=== PATIENT | female | born 1945 | race Caucasian/White ===

== ENCOUNTER 2017-06-14 01:46 | Observation (INO) | payer MEDICARE ==
[~2017-06-14] VITALS: Ht 152.4 cm; Wt 63.2 kg
[2017-06-14] VITALS (14 sets, daily range): BP systolic 119–183; BP diastolic 56–103; PULSE 53–113; RESP 16–22; TEMP 98.1–99.5; O2SAT 90–100
[~2017-06-14 01:46] MED LIST: DICL1GEL TD; PRED20 PO; SYNT112T PO; TRAM50 PO
[2017-06-14] MEDS ORDERED: ONDANSETRON HCL 4 MG/2 ML VIAL IVP ONE (02:00)
[2017-06-14] MEDS ORDERED: SODIUM CHLOR 0.9% 1000 ML INJ 1,000 ML IV SCH (02:00)
[2017-06-14] MEDS ORDERED: SODIUM CHLORIDE 0.9% FLUSH 10 ML FLUSH IV FLUSH PRN (02:00)
[2017-06-14] MEDS ORDERED: MORPHINE SULFATE 4 MG/ML INJ IV PUSH ONE ×2 (02:00→02:30)
--- NOTE | 2017-06-14 02:27 | RADRPT ---
EXAM DATE/TIME: 06/14/2017 02:01 [facility] COMPARISON: No previous studies available for comparison. INDICATIONS : Short of breath. MEDICAL HISTORY : None. SURGICAL HISTORY : None. ENCOUNTER: Initial ACUITY: 1 day PAIN SCORE: 5/10 LOCATION: Bilateral chest FINDINGS: The cardiac silhouette is enlarged in transverse diameter. The lungs are free of acute parenchymal op acity. No effusions are identified. A moderate size hiatal hernia is present. CONCLUSION: 1. Cardiomegaly. No acute pulmonary disease. 2. Hiatal hernia Kristopher Lovell MD on June 14, 2017 at 2:25 Board Certified Radiologist. This report was verified electronically.
[2017-06-14] MEDS ORDERED: PROMETHAZINE INJ 25 MG/ML VIAL IM ONE (02:30)
[2017-06-14 02:31] LABS: AUTOMATED NEUTROPHIL # 17.1 TH/MM3 (1.8-7.7); BASOPHIL # 0.3 TH/MM3 (0-0.2); BASOPHIL % 1.4 % (0.0-2.0); EOSINOPHIL % 0.1 % (0.0-4.0); LYMPH % 3.9 % (9.0-44.0); LYMPHOCYTE # 0.7 TH/MM3 (1.0-4.8); MEAN CELL VOLUME 73.9 FL (80.0-100.0); MEAN CORPUSCULAR HEMOGLOBIN 23.2 PG (27.0-34.0); MEAN CORPUSCULAR HGB CONC 31.4 % (32.0-36.0); MONO % 0.4 % (0.0-8.0); NEUT % 94.2 % (16.0-70.0); PLATELET COUNT 494 TH/MM3 (150-450); RED CELL DISTRIBUTION WIDTH 16.9 % (11.6-17.2); WHITE BLOOD COUNT 18.2 TH/MM3 (4.0-11.0)
[2017-06-14 02:32] LABS: HEMO FLAGS AUTO DIFF
[2017-06-14 02:39] LABS: CHLORIDE 104 MEQ/L (98-107); POTASSIUM 3.6 MEQ/L (3.5-5.1); SODIUM (NA) 138 MEQ/L (136-145)
[2017-06-14 02:43] LABS: ANION GAP 10 MEQ/L (5-15); BICARBONATE 23.7 MEQ/L (21.0-32.0)
[2017-06-14 02:44] LABS: BLOOD UREA NITROGEN 12 MG/DL (7-18)
[2017-06-14 02:46] LABS: ALT (GPT) 17 U/L (10-53); AST (GOT) 10 U/L (15-37); GLOMERULAR FILTRATION RATE 69 ML/MIN (>89)
[2017-06-14 02:48] LABS: TOTAL BILIRUBIN ADULT 0.3 MG/DL (0.2-1.0)
[2017-06-14 02:49] LABS: ALKALINE PHOSPHATASE 134 U/L (45-117)
[2017-06-14 02:54] LABS: BANDS 2 % (0-6); NEUTROPHIL # MANUAL DIFF 16.7 TH/MM3 (1.8-7.7); OVALOCYTES 1+ (NORMAL); PLATELET ESTIMATE SMEAR HIGH (NORMAL); PLATELET MORPHOLOGY CLUMPED (NORMAL); POLYS (SEG NEUTROPHILS) 90 % (16-70); SCAN/DIFF FINAL DIFF MANUAL; WBC DIFF SAMPLE 100
[2017-06-14] MEDS ORDERED: PIPERACIL-TAZO 4.5 GM PREMIX 100 ML IV ONE (03:30)
--- NOTE | 2017-06-14 03:33 | RADRPT ---
EXAM DATE/TIME: 06/14/2017 02:59 [facility] COMPARISON: No previous studies available for comparison. INDICATIONS : Right flank pain. ORAL CONTRAST: No oral contrast ingested. RADIATION DOSE: 11.63 CTDIvol (mGy) MEDICAL HISTORY : Hernia, hiatal. Diverticulitis. Gastroesophageal reflux disease. SURGICAL HISTORY : Hysterectomy. ENCOUNTER: Initial ACUITY: 1 day PAIN SCALE: 10/10 LOCATION: Right flank TECHNIQUE: Volumetric scanning of the abdomen and pelvis was performed. Using automated exposure control and ad justment of the mA and/or kV according to patient size, radiation dose was kept as low as reasonably achievable to obtain optimal diagnostic quality images. DICOM format image data is available electro nically for review and comparison. FINDINGS: Examination of the lung bases demonstrates no abnormality. No pleural fluid is identified. No pulmona ry nodules are present. A large hiatal hernia is present. There are multiple hypodensities within the liver compatible with hepatic cysts the largest measuring 15 mm in segment 5. The spleen is normal i n size and free of focal defects. The adrenal glands are unremarkable. There are multiple left renal stones without obstruction. On the right side there is hydronephrosis and hydroureter with 11 mm ston e in the distal right ureter. Examination of the pelvis demonstrates no evidence of free fluid or pelvic mass. No abnormally enlarg ed inguinal or retroperitoneal lymph nodes are present. The bladder is unremarkable. There is diverti culosis without evidence of diverticulitis. CONCLUSION: 1. Right hydronephrosis and hydroureter with an 11 mm distal right ureteral stone 2. Hiatal hernia Kristopher Lovell MD on June 14, 2017 at 3:27 Board Certified Radiologist. This report was verified electronically.
[2017-06-14] MEDS ORDERED: VOLT1GEL4 TD (03:48)
[2017-06-14] MEDS ORDERED: SYNT112T PO (03:48)
--- NOTE | 2017-06-14 04:18 | PD ---
HPI Chief Complaint: Flank/Kidney Pain Time Seen by Provider: 01:49 Travel History International Travel<30 days: No Contact w/Intl Traveler<30days: No Traveled to known affect area: No History of Present Illness HPI 72-year-old female presents to the emergency department by EMS transport from home for complaint of severe abdominal pain since 9 PM. Patient did receive Zofran en route to the hospital per EMS but they were reportedly unable to obtain a blood pressure due to patient inability to sit still long enough for blood pressure to be obtained. No tachycardia and no tachypnea. Blood sugar was reportedly within normal range. PFSH Past Medical History Narrative Medical Arthritis diverticulitis recurrent UTIs hiatal hernia hysterectomy right eye enucleation lumbar disc disease hypothyroidism tonsillectomy alcohol use tobacco use; nursing notes reviewed Arthritis: Yes (OSTEO) Cancer: No Cardiovascular Problems: No Diabetes: No Diminished Hearing: No Diverticulitis: Yes Endocrine: Yes Gastrointestinal Disorders: Yes (ACID REFLUX, HX OF DIVERTICULITIS/ DIVERTICULOSIS, HIATAL HERNIA) GERD: Yes Genitourinary: Yes (HX OF MULTIPLE UTI'S) Hepatitis: No Hiatal Hernia: Yes Herniated Disk: Yes ("BULGING") Immune Disorder: No Kidney Stones: Yes Musculoskeletal: Yes (HERNIATED DISC LOWER LUMBAR) Neurologic: No Psychiatric: No Reproductive: No Respiratory: Yes (SMOKE 1/2 PPD) Pneumonia: Yes (?) Thyroid Disease: Yes (HX OF HYPERTHYROID, HX OF THYROID REMOVAL/ABLATION) Tetanus Vaccination: < 5 Years Influenza Vaccination: No ?: Not Menopausal: Yes : 3 Para: 3 Past Surgical History AICD: No Body Medical Devices: R EYE PROSTHESIS Eye Surgery: Yes (RIGHT EYE ENUCLEATION--R EYE REMOVED 1950) Gynecologic Surgery: Yes (HYSTERECTOMY 1980) Hysterectomy: Yes Joint Replacement: No Oral Surgery: Yes (NASAL FX REPAIR) Pacemaker: No Tonsillectomy: Yes Other Surgery: Yes Social History Alcohol Use: Yes (OCC.) Tobacco Use: Yes (1/2 PPD) Substance Use: No Allergies-Medications (Allergen,Severity, Reaction): Coded Allergies: aspirin (Unverified Allergy, Mild, 06/14/17) PATIENT HAS STOMACH PROBLEMS WITH ASPIRIN Reported Meds & Prescriptions Reported Meds & Active Scripts Active Reported Voltaren (Diclofenac Sodium) 1 % Gel..gram. 1 Applic TD TID PRN Synthroid (Levothyroxine Sodium) 112 Mcg Tab 112 Mcg PO DAILY Review of Systems Except as stated in HPI: all other systems reviewed are Neg General / Constitutional: No: Fever, Chills HENT: No: Headaches Cardiovascular: No: Chest Pain or Discomfort Respiratory: No: Shortness of Breath Gastrointestinal: Positive: Nausea, Vomiting, Abdominal Pain Genitourinary: Positive: Flank Pain Musculoskeletal: No: Myalgias, Arthralgias Skin: No Rash Neurologic: Positive: Weakness Psychiatric: Positive: Anxiety Hematologic/Lymphatic: No: Lymph Node Enlargement Physical Exam Narrative GENERAL: Well-developed well-nourished female in obvious marked distress no respiratory distress GCS 15 SKIN: Warm and dry. HEAD: Normocephalic. EYES: No scleral icterus. No injection or drainage. NECK: Supple, trachea midline. No JVD or lymphadenopathy. CARDIOVASCULAR: Regular rate and rhythm without murmurs, gallops, or rubs. RESPIRATORY: Breath sounds equal bilaterally. No accessory muscle use. GASTROINTESTINAL: Abdomen soft, right-sided tenderness without guarding or rebound, nondistended. MUSCULOSKELETAL: No cyanosis, or edema. BACK: Nontender without obvious deformity. Right flank/CVA tenderness. Data Data Last Documented VS Vital Signs Date Time Temp Pulse Resp B/P (MAP) Pulse Ox O2 Delivery O2 Flow Rate FiO2 06/14/17 03:51 53 16 158/64 (95) 96 Nasal Cannula 2.00 Orders Orders Complete Blood Count With Diff (06/14/17 01:49) Comprehensive Metabolic Panel (06/14/17 01:49) Lipase (06/14/17 01:49) Lactic Acid (06/14/17 01:49) Urinalysis - C+S If Indicated (06/14/17 01:49) Ct Abd/Pel W/O Iv Contrast (06/14/17 01:49) Iv Access Insert/Monitor (06/14/17 01:49) Ecg Monitoring (06/14/17 01:49) Oximetry (06/14/17 01:49) Morphine Inj (Morphine Inj) (06/14/17 02:00) Ondansetron Inj (Zofran Inj) (06/14/17 02:00) Sodium Chloride 0.9% Flush (Ns Flush) (06/14/17 02:00) Electrocardiogram (06/14/17 01:49) Chest, Single Ap (06/14/17 01:49) Sodium Chlor 0.9% 1000 Ml Inj (Ns 1000 M (06/14/17 02:00) Type And Screen (06/14/17 01:49) Morphine Inj (Morphine Inj) (06/14/17 02:30) Promethazine Inj (Phenergan Inj) (06/14/17 02:30) Piperacil-Tazo 4.5 Gm Premix (Zosyn 4.5 (06/14/17 03:30) Blood Culture (06/14/17 04:07) Labs Laboratory Tests Test 06/14/17 02:25 White Blood Count 18.2 TH/MM3 Red Blood Count 4.60 MIL/MM3 Hemoglobin 10.7 GM/DL Hematocrit 34.0 % Mean Corpuscular Volume 73.9 FL Mean Corpuscular Hemoglobin 23.2 PG Mean Corpuscular Hemoglobin Concent 31.4 % Red Cell Distribution Width 16.9 % Platelet Count 494 TH/MM3 Mean Platelet Volume 7.7 FL Neutrophils (%) (Auto) 94.2 % Lymphocytes (%) (Auto) 3.9 % Monocytes (%) (Auto) 0.4 % Eosinophils (%) (Auto) 0.1 % Basophils (%) (Auto) 1.4 % Neutrophils # (Auto) 17.1 TH/MM3 Lymphocytes # (Auto) 0.7 TH/MM3 Monocytes # (Auto) 0.1 TH/MM3 Eosinophils # (Auto) 0.0 TH/MM3 Basophils # (Auto) 0.3 TH/MM3 CBC Comment AUTO DIFF Differential Total Cells Counted 100 Neutrophils % (Manual) 90 % Band Neutrophils % 2 % Lymphocytes % 7 % Monocytes % 1 % Neutrophils # (Manual) 16.7 TH/MM3 Differential Comment FINAL DIFF MANUAL Platelet Estimate HIGH Platelet Morphology Comment CLUMPED Ovalocytes 1+ Blood Urea Nitrogen 12 MG/DL Creatinine 0.81 MG/DL Random Glucose 173 MG/DL Total Protein 7.4 GM/DL Albumin 3.8 GM/DL Calcium Level 9.9 MG/DL Alkaline Phosphatase 134 U/L Aspartate Amino Transf (AST/SGOT) 10 U/L Alanine Aminotransferase (ALT/SGPT) 17 U/L Total Bilirubin 0.3 MG/DL Sodium Level 138 MEQ/L Potassium Level 3.6 MEQ/L Chloride Level 104 MEQ/L Carbon Dioxide Level 23.7 MEQ/L Anion Gap 10 MEQ/L Estimat Glomerular Filtration Rate 69 ML/MIN Lactic Acid Level 2.0 mmol/L Lipase 114 U/L [facility] Medical Decision Making Medical Screen Exam Complete: Yes Emergency Medical Condition: Yes Medical Record Reviewed: Yes Interpretation(s) CT abd/pel: CONCLUSION: 1. Right hydronephrosis and hydroureter with an 11 mm distal right ureteral stone 2. Hiatal hernia Kristopher Lovell MD on June 14, 2017 at 3:27 Board Certified Radiologist. This report was verified electronically. CBC & BMP Diagram 06/14/17 02:25 Total Protein 7.4, Albumin 3.8, Calcium Level 9.9, Alkaline Phosphatase 134 H, Aspartate Amino Transf (AST/SGOT) 10 L, Alanine Aminotransferase (ALT/SGPT) 17, Total Bilirubin 0.3 Vital Signs Date Time Temp Pulse Resp B/P (MAP) Pulse Ox O2 Delivery O2 Flow Rate FiO2 06/14/17 03:51 53 16 158/64 (95) 96 Nasal Cannula 2.00 06/14/17 03:10 58 18 159/61 (93) 97 Nasal Cannula 2.00 06/14/17 02:56 61 20 168/86 (113) 96 Nasal Cannula 2.00 06/14/17 02:43 55 18 168/86 (113) 96 Room Air Differential Diagnosis Obstructive uropathy/nephrolithiasis ureterolithiasis, pyelonephritis, abdominal aortic aneurysm, aortic dissection, biliary colic, pancreatitis, atypical appendicitis, Narrative Course Patient placed on cardiac exercise physiologist IV access obtained specimens collected and sent for resulting patient administered Zofran 4 mg IV morphine sulfate 3 mg IV Patient continues to rise back and forth in severe pain on the exam stretcher receiving maintenance IV fluids 100 cc per hour reports pain is intolerable additional morphine sulfate 2 mg IV administered Patient relief after additional dose of morphine sulfate Patient with ongoing nausea and vomiting has received 8 mg of Zofran therefore Phenergan 25 mg IM administered IV fluids infusing CBC is automated differential marked leukocytosis with left shift with history of recurrent UTI and diverticulitis with abdominal pain well administer Zofran 4.5 gm IV lactic acid is 2.0, not elevated Metabolic panel values grossly within normal range Patient sent for CT abdomen and pelvis kidney stone protocol; consistent with obstructive uropathy with hydronephrosis and hydroureter with distal 11 mm ureteral stone Patient return from CT reports feels some improved urine specimen collected At 4:15 AM patient again vomiting; patient be admitted for intractable pain and vomiting with obstructive uropathy will require urology consult and probable stenting Sepsis Criteria SIRS Criteria (2 or more): WBC > 83392, < 4000 or > 10% bands Sepsis Criteria (SIRS+source): Infect source susp/known (urine) Physician Communication Physician Communication call placed to Dr Bueno for admission Diagnosis Primary Impression: Hydronephrosis Qualified Codes: N13.2 - Hydronephrosis with renal and ureteral calculous obstruction Additional Impression: Renal colic on right side Admitting Information Admitting Physician Requests: Admit Mariangel Lujan MD Jun 14, 2017 04:18
[2017-06-14 04:21] LABS: BLOOD, URINE SMALL (NEG); GLUCOSE,URINE NEG (NEG); KETONE, URINE NEG (NEG); NITRITE,URINE NEG (NEG)
[2017-06-14 04:35] LABS: URINE COLOR YELLOW (YELLW/STRAW)
[2017-06-14 04:37] LABS: MUCUS URINE OCC /lpf (OCC); SQUAMOUS EPITHELIAL CELL URINE 0-5 /hpf (0-5)
[2017-06-14 04:38] LABS: BACTERIA, URINE OCC /hpf; COMMENT (UR) CULT NOT INDICATED; CULTURE IF INDICATED CULT NOT INDICATED
--- NOTE | 2017-06-14 05:44 | HHI.HP ---
HPI [facility] Primary Care Physician Denise Zavala MD Admission Diagnosis (R) 11 mm hydronephrosis/ureter; leukocytosis Chief Complaint: Right flank and right lower abdomen pain, nausea vomiting Travel History International Travel<30 Days: No Contact w/Intl Traveler <30 Da: No Traveled to Known Affected Are: No History of Present Illness 72-year-old female known to me from prior outpatient care presents to the emergency department by EMS transport from home for complaint of severe abdominal pain since 9 PM last night. Patient did receive Zofran en route to the hospital per EMS but they were reportedly unable to obtain a blood pressure due to patient inability to sit still long enough for blood pressure to be obtained. Patient was found to have a white count of 18 and an 11 mm kidney stone in the right ureter with associated hydronephrosis and hydroureter on that side. She has been given morphine as well as Phenergan in the noted ondansetron as above. Phenergan seemed to work better for controlling her nausea vomiting. Urology is requesting that the adult medicine service admit the patient and transfer her to the main campus for further evaluation and treatment. Review of Systems Constitutional: COMPLAINS OF: Diaphoretic episodes Eyes: DENIES: Blurred vision, Diplopia, Eye inflammation, Eye pain, Vision loss , Photosensitivity, Double Vision Ears, nose, mouth, throat: DENIES: Tinnitus, Hearing loss, Vertigo, Nasal discharge, Oral lesions, Throat pain, Hoarseness, Ear Pain, Running Nose, Epistaxis, Sinus Pain, Toothache, Odynophagia Respiratory: COMPLAINS OF: Cough, DENIES: Apneas, Snoring, Wheezing, Hemoptysis , Sputum production, Shortness of breath Cardiovascular: DENIES: Chest pain, Palpitations, Syncope, Dyspnea on Exertion , PND, Lower Extremity Edema, Orthopnea, Claudication Gastrointestinal: COMPLAINS OF: Abdominal pain, Nausea, Vomiting Musculoskeletal: COMPLAINS OF: Joint pain Hematologic/lymphatic: DENIES: Bruising, Lymphadenopathy Immunologic/allergic: DENIES: Eczema, Urticaria Neurologic: DENIES: Abnormal gait, Headache, Localized weakness, Paresthesias, Seizures, Speech Problems, Tremor, Poor Balance Psychiatric: COMPLAINS OF: Anxiety Past Family Social History Past Medical History Essential tremor Lumbar degenerative disc disease GERD Hypertension Hyperlipidemia Hypothyroidism Thrombocytosis Daily smoker Past Surgical History 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 She is a bit lethargic due to recent pain medicine administration. SKIN: No rashes, ecchymoses or lesions. Cool and dry. HEAD: Atraumatic. Normocephalic. EYES: Enucleation right eye which is chronic and stable. Extraocular motions intact. No scleral icterus. No injection or drainage. ENT: Nose without bleeding, purulent drainage or septal hematoma. Airway patent. NECK: Trachea midline. No JVD or lymphadenopathy. Supple, nontender, no meningeal signs. CARDIOVASCULAR: Regular rate and rhythm without murmurs, gallops, or rubs. Rate in the 50s to 60s on my exam. RESPIRATORY: Clear to auscultation. Breath sounds equal bilaterally. No wheezes , rales, or rhonchi. GASTROINTESTINAL: Abdomen soft, nondistended. Mild tenderness to palpation right lower quadrant and right flank. No hepato-splenomegaly, or palpable masses. No rebound. MUSCULOSKELETAL: Extremities without clubbing, cyanosis, or edema. No joint tenderness, effusion, or edema noted. No calf tenderness. NEUROLOGICAL: Awake and alert but a bit sedated due to pain medication. Cranial nerves II through XII intact. Motor and sensory grossly within normal limits. Five out of 5 muscle strength in all muscle groups. Normal speech. Laboratory Laboratory Tests Test 06/14/17 02:25 06/14/17 04:15 White Blood Count 18.2 Red Blood Count 4.60 Hemoglobin 10.7 Hematocrit 34.0 Mean Corpuscular Volume 73.9 Mean Corpuscular Hemoglobin 23.2 Mean Corpuscular Hemoglobin Concent 31.4 Red Cell Distribution Width 16.9 Platelet Count 494 Mean Platelet Volume 7.7 Neutrophils (%) (Auto) 94.2 Lymphocytes (%) (Auto) 3.9 Monocytes (%) (Auto) 0.4 Eosinophils (%) (Auto) 0.1 Basophils (%) (Auto) 1.4 Neutrophils # (Auto) 17.1 Lymphocytes # (Auto) 0.7 Monocytes # (Auto) 0.1 Eosinophils # (Auto) 0.0 Basophils # (Auto) 0.3 CBC Comment AUTO DIFF Differential Total Cells Counted 100 Neutrophils % (Manual) 90 Band Neutrophils % 2 Lymphocytes % 7 Monocytes % 1 Neutrophils # (Manual) 16.7 Differential Comment FINAL DIFF MANUAL Platelet Estimate HIGH Platelet Morphology Comment CLUMPED Ovalocytes 1+ Blood Urea Nitrogen 12 Creatinine 0.81 Random Glucose 173 Total Protein 7.4 Albumin 3.8 Calcium Level 9.9 Alkaline Phosphatase 134 Aspartate Amino Transf (AST/SGOT) 10 Alanine Aminotransferase (ALT/SGPT) 17 Total Bilirubin 0.3 Sodium Level 138 Potassium Level 3.6 Chloride Level 104 Carbon Dioxide Level 23.7 Anion Gap 10 Estimat Glomerular Filtration Rate 69 Lactic Acid Level 2.0 Lipase 114 Urine Color YELLOW Urine Turbidity SLIGHT Urine pH 6.0 Urine Specific [place] 1.015 Urine Protein NEG Urine Glucose (UA) NEG Urine Ketones NEG Urine Occult Blood SMALL Urine Nitrite NEG Urine Bilirubin NEG Urine Leukocyte Esterase SMALL Urine RBC 10-14 Urine WBC 3-5 Urine Squamous Epithelial Cells 0-5 Urine Bacteria OCC Urine Mucus OCC Microscopic Urinalysis Comment CULT NOT INDICATED Date/Time Source Procedure Growth Status 06/14/17 02:30 Blood Peripheral Aerobic Blood Culture Pending Received 06/14/17 02:30 Blood Peripheral Anaerobic Blood Culture Pending Received Result Diagram: 06/14/175 06/14/17224 Imaging Last 72 hours Impressions Chest X-Ray 06/14/17148 Signed Impressions: Service Date/Time: Wednesday, June 14, 2017 02:01 - CONCLUSION: 1. Cardiomegaly. No acute pulmonary disease. 2. Hiatal hernia Kristopher Lovell MD Abdomen/Pelvis CT 06/14/17148 Signed Impressions: Service Date/Time: Wednesday, June 14, 2017 02:59 - CONCLUSION: 1. Right hydronephrosis and hydroureter with an 11 mm distal right ureteral stone 2. Hiatal hernia Kristopher Lovell MD Caprinshady VTE Risk Assessment Caprini VTE Risk Assessment: Mod/High Risk (score >= 2) Caprini Risk Assessment Model Point Value = 1 Point Value = 2 Point Value = 3 Point Value = 5 Age 41-60 Minor surgery BMI > 25 kg/m2 Swollen legs Varicose veins or History of unexplained or recurrent spontaneous Oral contraceptives or hormone replacement Sepsis (< 1 month) Serious lung disease, including pneumonia (< 1 month) Abnormal pulmonary function Acute myocardial infarction Congestive heart failure (< 1 month) History of inflammatory bowel disease Medical patient at bed rest Age 61-74 Arthroscopic surgery Major open surgery (> 45 min) Laparoscopic surgery (> 45 min) Malignancy Confined to bed (> 72 hours) Immobilizing plaster cast Central venous access Age >= 75 History of VTE Family history of VTE Factor V Leiden Prothrombin [id number] Lupus anticoagulant Anticardiolipin antibodies Elevated serum homocysteine Heparin-induced thrombocytopenia Other congenital or acquired thrombophilia Stroke (< 1 month) Elective arthroplasty Hip, pelvis, or leg fracture Acute spinal cord injury (< 1 month) Prophylaxis Regimen Total Risk Factor Score Risk Level Prophylaxis Regimen 0-1 Low Early ambulation 2 Moderate Order ONE of the following: *Sequential Compression Device (SCD) *Heparin 5000 units SQ BID 3-4 Higher Order ONE of the following medications: *Heparin 5000 units SQ TID *Enoxaparin/Lovenox 40 mg SQ daily (WT < 150 kg, CrCl > 30 mL/min) *Enoxaparin/Lovenox 30 mg SQ daily (WT < 150 kg, CrCl > 10-29 mL/min) *Enoxaparin/Lovenox 30 mg SQ BID (WT < 150 kg, CrCl > 30 mL/min) AND/OR *Sequential Compression Device (SCD) 5 or more Highest Order ONE of the following medications: *Heparin 5000 units SQ TID (Preferred with Epidurals) *Enoxaparin/Lovenox 40 mg SQ daily (WT < 150 kg, CrCl > 30 mL/min) *Enoxaparin/Lovenox 30 mg SQ daily (WT < 150 kg, CrCl > 10-29 mL/min) *Enoxaparin/Lovenox 30 mg SQ BID (WT < 150 kg, CrCl > 30 mL/min) AND *Sequential Compression Device (SCD) Assessment and Plan Problem List: (1) Renal colic on right side ICD Codes: N23 - Unspecified renal colic Status: Acute Plan: Continue IV fluid and pain medication and anti-emetics. Transferred to [facility] per urology request. (2) Hydronephrosis ICD Codes: N13.30 - Unspecified hydronephrosis Status: Acute Plan: GFR okay. Transferred to [facility] for further evaluation and treatment by urology. (3) Hypertension ICD Codes: I10 - Essential (primary) hypertension Status: Chronic Plan: Has been reluctant to take any medication as an outpatient. Follow as outpatient. (4) Hypothyroidism ICD Codes: E03.9 - Hypothyroidism, unspecified Status: Chronic Plan: Continue medication. TSH at goal in September of this year. (5) Tobacco use ICD Codes: Z72.0 - Tobacco use Plan: Encourage her to stop smoking. She cannot tolerate Chantix. Has failed various interventional therapies as an outpatient. Pai. Code Status Full Discussed Condition With Patient and ER physician. Problem Qualifiers (1) Hydronephrosis: Qualified Codes: N13.2 - Hydronephrosis with renal and ureteral calculous obstruction (2) Hypertension: Qualified Codes: I10 - Essential (primary) hypertension Eduardo Maldonado MD PhD Jun 14, 2017 05:44
[2017-06-14] MEDS ORDERED: PROMETHAZINE INJ 25 MG/ML VIAL IM PRN (05:45)
[2017-06-14] MEDS ORDERED: NS + KCL 20 MEQ INJ 1,000 ML IV SCH (06:00)
[2017-06-14] MEDS: LEVOTHYROXINE SODIUM 112 MCG TAB PO SCH (07:58)
[2017-06-14] MEDS: NICOTINE 21 MG/24 HR PATCH T-DERMAL SCH (09:00)
[2017-06-14] MEDS: MORPHINE SULFATE 4 MG/ML INJ IV PUSH PRN ×3 (09:04→16:03)
[2017-06-14] MEDS: ONDANSETRON HCL 4 MG/2 ML VIAL IV PUSH PRN ×2 (09:04→15:55)
--- NOTE | 2017-06-14 13:52 | EKG ---
Date Performed: 06/14/2017 Time Performed: 02:20:01 PTAGE: 72 years EKG: Sinus rhythm WITH MARKED SINUS ARRHYTHMIA NONSPECIFIC T-WAVE ABNORMALITY BORDERLINE ECG NO PREVIOUS TRACING DOCTOR: Jose Luis Tinajero Interpretating Date/Time 06/14/2017 13:45:09
--- NOTE | 2017-06-14 18:19 | PD.CONS ---
HPI Service Urology Consult Requested By Dr. Lujan Reason for Consult right ureteral calculus Primary Care Physician Denise Zavala MD Diagnosis: (1) Renal colic on right side ICD Code: N23 - Unspecified renal colic (2) Hydronephrosis ICD Code: N13.30 - Unspecified hydronephrosis (3) Hypertension ICD Code: I10 - Essential (primary) hypertension (4) Hypothyroidism ICD Code: E03.9 - Hypothyroidism, unspecified (5) Tobacco use ICD Code: Z72.0 - Tobacco use History of Present Illness 72-year-old female with no prior history nephrolithiasis who presented to the emergency room with acute onset right flank pain. Workup included a CT scan stone protocol that demonstrated an 11 mm right distal ureteral calculus causing market right hydroureteronephrosis. Also noted were bilateral renal calculi. Patient was afebrile however had significant elevation in her white cell count and was thus admitted for I V hydration, pain management and urologic evaluation. At the time of consultation the patient was resting quietly and in no acute distress. Her primary complaint was nausea. I reviewed the actual CT scan images and concur with the radiologist impression. Review of Systems Constitutional: DENIES: Fever, Chills Gastrointestinal: COMPLAINS OF: Abdominal pain (right side), Nausea, Vomiting Genitourinary: DENIES: Hematuria, Dysuria Musculoskeletal: COMPLAINS OF: Back pain (right flank) Except as stated in HPI: all other systems reviewed are Neg Past Family Social History Past Medical History Hypertension Hyperlipidemia Hypothyroidism GERD Degenerative disc disease Past Surgical History Status post hysterectomy Status post bilateral salpingo-oophorectomy Status post cataract surgery Status post Sinus and nose surgery Reported Medications Refer to EMR Allergies: Coded Allergies: aspirin (Unverified Allergy, Mild, 06/14/17) PATIENT HAS STOMACH PROBLEMS WITH ASPIRIN Active Ordered Medications Refer to EMR Family History Mother from lung cancer Social History Smoker of 1/2-1 pack per day greater than 50 years Occasional alcohol use No history of intravenous drug abuse Physical Exam Vital Signs Date Time Temp Pulse Resp B/P (MAP) Pulse Ox O2 Delivery O2 Flow Rate FiO2 06/14/17 16:39 99.5 94 22 150/67 (94) 90 06/14/17 16:08 14 06/14/17 14:59 98.2 66 22 183/73 (109) 93 06/14/17 12:40 55 18 144/76 (98) 97 06/14/17 11:19 56 18 171/92 (118) 98 Nasal Cannula 2.00 06/14/17 09:12 77 18 155/75 (101) 96 Room Air 06/14/17 07:25 98.7 57 18 168/74 (105) 99 Nasal Cannula 2.00 06/14/17 06:19 68 06/14/17 06:19 68 16 179/68 (105) 98 Nasal Cannula 2.00 06/14/17 03:51 53 16 158/64 (95) 96 Nasal Cannula 2.00 06/14/17 03:10 58 18 159/61 (93) 97 Nasal Cannula 2.00 06/14/17 02:56 61 20 168/86 (113) 96 Nasal Cannula 2.00 06/14/17 02:43 55 18 168/86 (113) 96 Room Air 06/14/17 01:50 98.1 73 18 176/103 (127) 100 06/14/17 01:50 73 Physical Exam GENERAL: This is a well-nourished, well-developed patient, in no apparent distress. SKIN: No rashes, ecchymoses or lesions. Cool and dry. HEAD: Atraumatic. Normocephalic. No temporal or scalp tenderness. EYES: Pupils equal round and reactive. Extraocular motions intact. No scleral icterus. No injection or drainage. ENT: Nose without bleeding, purulent drainage or septal hematoma. Throat without erythema, tonsillar hypertrophy or exudate. Uvula midline. Airway patent. NECK: Trachea midline. No JVD or lymphadenopathy. Supple, nontender, no meningeal signs. CARDIOVASCULAR: Regular rate and rhythm without murmurs, gallops, or rubs. RESPIRATORY: Clear to auscultation. Breath sounds equal bilaterally. No wheezes , rales, or rhonchi. GASTROINTESTINAL: Abdomen soft, non-tender, nondistended. No hepato-splenomegaly , or palpable masses. No guarding. GENITOURINARY: No CVA tenderness. Bladder not distended MUSCULOSKELETAL: Extremities without clubbing, cyanosis, or edema. No joint tenderness, effusion, or edema noted. No calf tenderness. Negative Homans sign bilaterally. NEUROLOGICAL: Awake and alert. Cranial nerves II through XII intact. Motor and sensory grossly within normal limits. Five out of 5 muscle strength in all muscle groups. Normal speech. Lab results reviewed: Yes Laboratory Tests Test 06/14/17 02:25 06/14/17 04:15 White Blood Count 18.2 Red Blood Count 4.60 Hemoglobin 10.7 Hematocrit 34.0 Mean Corpuscular Volume 73.9 Mean Corpuscular Hemoglobin 23.2 Mean Corpuscular Hemoglobin Concent 31.4 Red Cell Distribution Width 16.9 Platelet Count 494 Mean Platelet Volume 7.7 Neutrophils (%) (Auto) 94.2 Lymphocytes (%) (Auto) 3.9 Monocytes (%) (Auto) 0.4 Eosinophils (%) (Auto) 0.1 Basophils (%) (Auto) 1.4 Neutrophils # (Auto) 17.1 Lymphocytes # (Auto) 0.7 Monocytes # (Auto) 0.1 Eosinophils # (Auto) 0.0 Basophils # (Auto) 0.3 CBC Comment AUTO DIFF Differential Total Cells Counted 100 Neutrophils % (Manual) 90 Band Neutrophils % 2 Lymphocytes % 7 Monocytes % 1 Neutrophils # (Manual) 16.7 Differential Comment FINAL DIFF MANUAL Platelet Estimate HIGH Platelet Morphology Comment CLUMPED Ovalocytes 1+ Blood Urea Nitrogen 12 Creatinine 0.81 Random Glucose 173 Total Protein 7.4 Albumin 3.8 Calcium Level 9.9 Alkaline Phosphatase 134 Aspartate Amino Transf (AST/SGOT) 10 Alanine Aminotransferase (ALT/SGPT) 17 Total Bilirubin 0.3 Sodium Level 138 Potassium Level 3.6 Chloride Level 104 Carbon Dioxide Level 23.7 Anion Gap 10 Estimat Glomerular Filtration Rate 69 Lactic Acid Level 2.0 Lipase 114 Urine Color YELLOW Urine Turbidity SLIGHT Urine pH 6.0 Urine Specific [place] 1.015 Urine Protein NEG Urine Glucose (UA) NEG Urine Ketones NEG Urine Occult Blood SMALL Urine Nitrite NEG Urine Bilirubin NEG Urine Leukocyte Esterase SMALL Urine RBC 10-14 Urine WBC 3-5 Urine Squamous Epithelial Cells 0-5 Urine Bacteria OCC Urine Mucus OCC Microscopic Urinalysis Comment CULT NOT INDICATED Date/Time Source Procedure Growth Status 06/14/17 02:30 Blood Peripheral Aerobic Blood Culture Pending Received 06/14/17 02:30 Blood Peripheral Anaerobic Blood Culture Pending Received Result Diagram: 06/14/17 0225 06/14/17 0225 Personally reviewed images: Yes Imaging Last Impressions Chest X-Ray 06/14/17 0149 Signed Impressions: Service Date/Time: Monday, June 14, 2017 02:01 - CONCLUSION: 1. Cardiomegaly. No acute pulmonary disease. 2. Hiatal hernia Kristopher Lovell MD Abdomen/Pelvis CT 06/14/17 0149 Signed Impressions: Service Date/Time: Wednesday, June 14, 2017 02:59 - CONCLUSION: 1. Right hydronephrosis and hydroureter with an 11 mm distal right ureteral stone 2. Hiatal hernia Kristopher Lovell MD Assessment and Plan Assessment and Plan Urologic Impression: #1 Right hydroureteronephrosis #2 Obstructing 11mm right distal ureteral calculus Plan: #1 npo after midnight #2 cysto, right rpg and right ureteral stent insertion tomorrow Problem Qualifiers (1) Hydronephrosis: Qualified Codes: N13.2 - Hydronephrosis with renal and ureteral calculous obstruction (2) Hypertension: Qualified Codes: I10 - Essential (primary) hypertension Ricky Aguilera MD Jun 14, 2017 18:19
[2017-06-14 20:22] LABS: HEMATOCRIT 31.6 % (35.0-46.0); MEAN CORPUSCULAR HEMOGLOBIN 23.1 PG (27.0-34.0); MEAN CORPUSCULAR HGB CONC 31.2 % (32.0-36.0); PLATELET COUNT 371 TH/MM3 (150-450); RED BLOOD COUNT 4.27 MIL/MM3 (4.00-5.30); RED CELL DISTRIBUTION WIDTH 17.8 % (11.6-17.2); WHITE BLOOD COUNT 31.6 TH/MM3 (4.0-11.0)
[2017-06-14 20:34] LABS: HEMO FLAGS AUTO DIFF
[2017-06-14] MEDS: REMOVE OLD PATCH T-DERMAL SCH (21:00)
[2017-06-14 21:15] LABS: BANDS 18 % (0-6); DOHLE BODIES PRESENT (NONE SEEN); MYELOCYTES 1 % (0-0); NEUTROPHIL # MANUAL DIFF 30.7 TH/MM3 (1.8-7.7); OVALOCYTES 1+ (NORMAL); PLATELET ESTIMATE SMEAR NORMAL (NORMAL); POLYS (SEG NEUTROPHILS) 78 % (16-70); TOXIC VACUOLATION PRESENT (NONE SEEN); WBC DIFF SAMPLE 100
[2017-06-14 21:16] LABS: SCAN/DIFF FINAL DIFF MANUAL
[2017-06-14 21:17] LABS: PLATELET MORPHOLOGY NORMAL (NORMAL)
[2017-06-14] MEDS ORDERED: INSULIN HUMAN REGULAR 1,000 UNITS/10 ML VIAL SQ PRN (23:15)
[2017-06-14] MEDS ORDERED: CHLORHEXIDINE GLUCONATE 2 % 1 PACK (2 CLOTHS) TOPICAL PRN (23:15)
[2017-06-14] MEDS ORDERED: LACTATED RINGER'S 1000 ML IV PRN (23:15)
[2017-06-14] MEDS ORDERED: POVIDONE IODINE 5% (ANTISEPSIS KIT) 4 APPLICATIONS EACH NARE PRN (23:15)
[2017-06-14] MEDS ORDERED: METOPROLOL TARTRATE 25 MG TAB PO PRN (23:15)
[2017-06-14] MEDS ORDERED: SODIUM CHLORID 0.9% 500 ML IV PRN (23:15)
[2017-06-15] VITALS (13 sets, daily range): BP systolic 103–171; BP diastolic 57–73; PULSE 73–105; RESP 15–20; TEMP 97.3–99.5; O2SAT 94–97
[2017-06-15] MEDS: LEVOTHYROXINE SODIUM 112 MCG TAB PO SCH (07:53)
[2017-06-15] MEDS ORDERED: LEVOFLOXACIN 500 MG PREMIX INJ 100 ML IV ONE (08:00)
[2017-06-15] MEDS: NICOTINE 21 MG/24 HR PATCH T-DERMAL SCH (08:23)
--- NOTE | 2017-06-15 08:54 | HHI.PR ---
Subjective Remarks Pt reports that her pain is better controlled with the IV Morphine but that she is still very tender on the right flank No vomiting, still some nausea Pt is NPO for procedure today Objective Vitals Vital Signs Date Time Temp Pulse Resp B/P (MAP) Pulse Ox O2 Delivery O2 Flow Rate FiO2 06/15/17 07:42 98.5 90 20 131/60 (83) 94 06/15/17 04:53 99.5 91 18 103/58 (73) 94 06/15/17 04:05 86 06/15/17 00:10 104 06/15/17 00:09 97.9 105 18 118/57 (77) 95 06/14/17 20:51 98.2 113 19 119/56 (77) 94 06/14/17 20:05 111 06/14/17 16:39 99.5 94 22 150/67 (94) 90 06/14/17 16:08 14 06/14/17 14:59 98.2 66 22 183/73 (109) 93 06/14/17 12:40 55 18 144/76 (98) 97 06/14/17 11:19 56 18 171/92 (118) 98 Nasal Cannula 2.00 06/14/17 09:12 77 18 155/75 (101) 96 Room Air 06/15/17 06/15/17 06/16/17 15:00 23:00 07:00 Output Total 100 ml Balance -100 ml Output Urine Total 100 ml Result Diagram: 06/14/17195406/14/17224 Other Results Laboratory Tests Test 06/14/17 02:25 06/14/17 04:15 06/14/17 19:55 White Blood Count 18.2 TH/MM3 31.6 TH/MM3 Red Blood Count 4.60 MIL/MM3 4.27 MIL/MM3 Hemoglobin 10.7 GM/DL 9.8 GM/DL Hematocrit 34.0 % 31.6 % Mean Corpuscular Volume 73.9 FL 74.0 FL Mean Corpuscular Hemoglobin 23.2 PG 23.1 PG Mean Corpuscular Hemoglobin Concent 31.4 % 31.2 % Red Cell Distribution Width 16.9 % 17.8 % Platelet Count 494 TH/MM3 371 TH/MM3 Mean Platelet Volume 7.7 FL 7.7 FL Neutrophils (%) (Auto) 94.2 % Lymphocytes (%) (Auto) 3.9 % Monocytes (%) (Auto) 0.4 % Eosinophils (%) (Auto) 0.1 % Basophils (%) (Auto) 1.4 % Neutrophils # (Auto) 17.1 TH/MM3 Lymphocytes # (Auto) 0.7 TH/MM3 Monocytes # (Auto) 0.1 TH/MM3 Eosinophils # (Auto) 0.0 TH/MM3 Basophils # (Auto) 0.3 TH/MM3 CBC Comment AUTO DIFF AUTO DIFF Differential Total Cells Counted 100 100 Neutrophils % (Manual) 90 % 78 % Band Neutrophils % 2 % 18 % Lymphocytes % 7 % 2 % Monocytes % 1 % 1 % Neutrophils # (Manual) 16.7 TH/MM3 30.7 TH/MM3 Differential Comment FINAL DIFF MANUAL FINAL DIFF MANUAL Platelet Estimate HIGH NORMAL Platelet Morphology Comment CLUMPED NORMAL Ovalocytes 1+ 1+ Blood Urea Nitrogen 12 MG/DL Creatinine 0.81 MG/DL Random Glucose 173 MG/DL Total Protein 7.4 GM/DL Albumin 3.8 GM/DL Calcium Level 9.9 MG/DL Alkaline Phosphatase 134 U/L Aspartate Amino Transf (AST/SGOT) 10 U/L Alanine Aminotransferase (ALT/SGPT) 17 U/L Total Bilirubin 0.3 MG/DL Sodium Level 138 MEQ/L Potassium Level 3.6 MEQ/L Chloride Level 104 MEQ/L Carbon Dioxide Level 23.7 MEQ/L Anion Gap 10 MEQ/L Estimat Glomerular Filtration Rate 69 ML/MIN Lactic Acid Level 2.0 mmol/L Lipase 114 U/L Urine Color YELLOW Urine Turbidity SLIGHT Urine pH 6.0 Urine Specific [place] 1.015 Urine Protein NEG mg/dL Urine Glucose (UA) NEG mg/dL Urine Ketones NEG mg/dL Urine Occult Blood SMALL Urine Nitrite NEG Urine Bilirubin NEG Urine Leukocyte Esterase SMALL Urine RBC 10-14 /hpf Urine WBC 3-5 /hpf Urine Squamous Epithelial Cells 0-5 /hpf Urine Bacteria OCC /hpf Urine Mucus OCC /lpf Microscopic Urinalysis Comment CULT NOT INDICATED Myelocytes 1 % Toxic Vacuolation PRESENT Dohle Bodies PRESENT Imaging Last 72 hours Impressions Chest X-Ray 06/14/17148 Signed Impressions: Service Date/Time: Wednesday, June 14, 2017 02:01 - CONCLUSION: 1. Cardiomegaly. No acute pulmonary disease. 2. Hiatal hernia Kristopher Lovell MD Abdomen/Pelvis CT 06/14/17148 Signed Impressions: Service Date/Time: Wednesday, June 14, 2017 02:59 - CONCLUSION: 1. Right hydronephrosis and hydroureter with an 11 mm distal right ureteral stone 2. Hiatal hernia Kristopher Lovell MD Objective Remarks General: NAD, AAOx3 Chest: CTA Cardiac: Regular, tachy Abd: +BS, soft mildly distended, right flank tenderness with voluntary guarding Ext: No edema A/P Problem List: (1) Renal colic on right side ICD Codes: N23 - Unspecified renal colic Status: Acute Plan: - Pt is a 72 y/o WF with HTN, Hypothyroidism, and tobacco use. - She presented to the ED at [facility] on 06/14/17 with complaints of right flank/ back pain, nausea and vomiting that began a few days ago but significantly worsened on the evening of 06/13. - In the ED, pt was found to have an elevated WBC count of 18/2 and microcytic anemia on blood work. - CT Abd/pelvis (06/14) --> Right hydronephrosis and hydroureter with an 11 mm distal right ureteral stone 2 - Pt was given IVF, pain control PRN and antiemetics in the ED and was transferred to [facility] for Urology evaluation - Appreciate Urology consultation, pt is planned for cystoscopy with right RPG and right ureteral stent insertion today - Pt is NPO - Cont. IVF - Monitor labs as her WBC count increased to 31.8 on 06/14. Repeat CBC this morning and in AM - Monitor BMP - Zofran or Phenergan PRN N/V - Morphine IV or [place] PO PRN Pain - DVT prophylaxis with SCDs (2) Hydronephrosis ICD Codes: N13.30 - Unspecified hydronephrosis Status: Acute Plan: - See above. (3) Hypertension ICD Codes: I10 - Essential (primary) hypertension Status: Chronic Plan: - BP stable with pain control - Monitor (4) Hypothyroidism ICD Codes: E03.9 - Hypothyroidism, unspecified Status: Chronic Plan: - Continue home medication. - TSH at goal in September of this year. (5) Tobacco use ICD Codes: Z72.0 - Tobacco use Plan: - Encourage her to stop smoking. She cannot tolerate Chantix. Has failed various interventional therapies as an outpatient. - NicoDerm ordered but pt refused. Assessment and Plan Patient examined. Assessment and plan formulated with Razia Cho PA-C. I agree with the above. right nephrolithiasis. elevated wbc. no fever. abx given this AM. IVF. prn pain meds. Going for cysto/stent this AM. Problem Qualifiers (1) Hydronephrosis: Qualified Codes: N13.2 - Hydronephrosis with renal and ureteral calculous obstruction (2) Hypertension: Qualified Codes: I10 - Essential (primary) hypertension Razia Cho Jun 15, 2017 08:54 Javier Ingram MD Jun 15, 2017 10:56
[2017-06-15] MEDS ORDERED: ACETAMINOPHEN/HYDROcodone 325 MG/7.5 MG TAB PO PRN (09:00)
[2017-06-15] MEDS: SODIUM CHLOR 0.9% 1000 ML INJ 1,000 ML IV SCH ×2 (09:29→18:10)
[2017-06-15] MEDS ORDERED: PROPOFOL 200 MG/20 ML AMP IV ONE (12:00)
[2017-06-15] MEDS ORDERED: LIDOCAINE HCL 1% PF 5 ML AMPULE OTHER ONE (12:00)
[2017-06-15] MEDS ORDERED: NORMOSOL R INJ 1,000 ML IV ONE (12:00)
[2017-06-15] MEDS ORDERED: FAMOTIDINE 20 MG/2 ML VIAL ONE (12:00)
[2017-06-15] MEDS ORDERED: SUCCINYLCHOLINE CHLORIDE 100 MG/5 ML SYRINGE IV PUSH ONE (12:00)
[2017-06-15] MEDS ORDERED: ePHEDrine/NS 25 MG/5 ML SYR IV ONE (12:00)
[2017-06-15] MEDS ORDERED: PHENYLEPH/NS 1000 MCG/10 ML SYR IV ONE (12:00)
[2017-06-15] MEDS ORDERED: ROCURONIUM INJ 50 MG/5 ML SYRINGE IV PUSH ONE (12:00)
[2017-06-15] MEDS ORDERED: ESMOLOL HCL 100 MG/10 ML VIAL IV ONE (12:00)
[2017-06-15] MEDS ORDERED: ONDANSETRON HCL 4 MG/2 ML VIAL IV PUSH ONE (12:00)
--- NOTE | 2017-06-15 13:13 | PD.OP ---
Operative Report Date of Surgery: Jun 15, 2017 Preoperative Diagnosis: (1) Ureteral calculus, right Postoperative Diagnosis: (1) Ureteral calculus, right Procedure: Cystoscopy, right retrograde pyelogram and right ureteral stent placement Anesthesia: General Surgeon: Ricky Aguilera Signal Intelligence/Electronic Warfare(s): None Operation and Findings: Indication for procedure: Case of a pleasant 72-year-old female with an 11 mm obstructing right distal ureteral calculus who presents now for cystoscopy, right retrograde pyelogram and right ureteral stent placement. Operative procedure in detail: Patient was brought to the operating suite and placed supine on the OR table. She was then placed under general anesthesia. She was then repositioned in the dorsolithotomy position and prepped and draped in normal sterile fashion. After an appropriate timeout was undertaken I proceeded with cystoscopic evaluation utilizing the rigid cystoscope with the 20 Austrian sheath and the 30 lens. Both right and left ureteral orifices were in correct anatomic position. There was clear reflux on on the left and there was no reflux noted on the right. A 6 Austrian open-ended ureteral catheter was then performed which demonstrated an obstructing right distal ureteral calculus several centimeters from the ureteral orifice. The ureter proximal to the stone was quite tortuous and I thus used a nitinol angle tipped wire to negotiate curves and fully advanced wire up to the right renal pelvis. With water place the open-ended ureteral catheter was further advanced up into the right renal pelvis and the ureter straightened. A sample of urine was obtained via this catheter and sent off for culture. The nitinol wire was then exchanged for a sensor put 035 wire and the open-ended catheter was exchanged for a care home 6 Austrian 22 cm double-J stent. The stent was placed on the both cystoscopic and fluoroscopic guidance without difficulty. Once the stent was in proper position the trailing string was removed. A 16 Austrian 10 cc Acuña catheter was then placed and connected to gravity drainage. Ricky Aguilera MD Jun 15, 2017 13:13
[2017-06-15] MEDS ORDERED: oxyCODONE/ACETAMINOPHEN 5 MG/325 MG TAB PO PRN ×2 (13:15)
[2017-06-15] MEDS ORDERED: DO NOT ADM ANY ANTICOAGULANT DRUGS PRN (13:21)
[2017-06-15] MEDS ORDERED: DIMETHICONE/OXYBENZONE/PADMIATE LIP BALM 4.25 GM TOPICAL ONE (13:49)
[2017-06-15 15:31] LABS: AUTOMATED NEUTROPHIL # 20.9 TH/MM3 (1.8-7.7); BASOPHIL # 0.1 TH/MM3 (0-0.2); BASOPHIL % 0.4 % (0.0-2.0); EOSINOPHIL # 0.1 TH/MM3 (0-0.4); EOSINOPHIL % 0.3 % (0.0-4.0); HEMATOCRIT 28.8 % (35.0-46.0); HEMO FLAGS DIFF FINAL; LYMPH % 7.2 % (9.0-44.0); LYMPHOCYTE # 1.8 TH/MM3 (1.0-4.8); MEAN CORPUSCULAR HEMOGLOBIN 23.1 PG (27.0-34.0); MEAN CORPUSCULAR HGB CONC 31.2 % (32.0-36.0); MONO % 6.1 % (0.0-8.0); PLATELET COUNT 297 TH/MM3 (150-450); RED BLOOD COUNT 3.89 MIL/MM3 (4.00-5.30); WHITE BLOOD COUNT 24.3 TH/MM3 (4.0-11.0)
[2017-06-15 15:54] LABS: BICARBONATE 26.1 MEQ/L (21.0-32.0); POTASSIUM 3.8 MEQ/L (3.5-5.1)
[2017-06-15] MEDS: REMOVE OLD PATCH T-DERMAL SCH (21:00)
[2017-06-15] MEDS: ONDANSETRON HCL 4 MG/2 ML VIAL IV PUSH PRN (22:24)
[2017-06-16 00:45] VITALS: BP 152/68; PULSE 70
[2017-06-16] MEDS: SODIUM CHLOR 0.9% 1000 ML INJ 1,000 ML IV SCH (03:50)
[2017-06-16 04:42] VITALS: BP 163/70; PULSE 72; RESP 17; TEMP 98.3; O2SAT 93
[2017-06-16] MEDS: LEVOTHYROXINE SODIUM 112 MCG TAB PO SCH (06:20)
[2017-06-16 08:00] VITALS: PULSE 83
[2017-06-16 08:07] LABS: AUTOMATED NEUTROPHIL # 12.2 TH/MM3 (1.8-7.7); BASOPHIL # 0.1 TH/MM3 (0-0.2); BASOPHIL % 0.8 % (0.0-2.0); EOSINOPHIL # 0.3 TH/MM3 (0-0.4); EOSINOPHIL % 1.7 % (0.0-4.0); HEMATOCRIT 28.1 % (35.0-46.0); HEMO FLAGS DIFF FINAL; LYMPH % 11.9 % (9.0-44.0); LYMPHOCYTE # 1.9 TH/MM3 (1.0-4.8); MEAN CELL VOLUME 73.3 FL (80.0-100.0); MEAN CORPUSCULAR HEMOGLOBIN 23.3 PG (27.0-34.0); MEAN CORPUSCULAR HGB CONC 31.8 % (32.0-36.0); MONO % 8.6 % (0.0-8.0); PLATELET COUNT 265 TH/MM3 (150-450); RED BLOOD COUNT 3.84 MIL/MM3 (4.00-5.30); RED CELL DISTRIBUTION WIDTH 17.5 % (11.6-17.2); WHITE BLOOD COUNT 15.9 TH/MM3 (4.0-11.0)
[2017-06-16 08:16] LABS: BICARBONATE 22.6 MEQ/L (21.0-32.0); MAGNESIUM 1.7 MG/DL (1.5-2.5); POTASSIUM 3.2 MEQ/L (3.5-5.1)
[2017-06-16] MEDS: NICOTINE 21 MG/24 HR PATCH T-DERMAL SCH (08:23)
[2017-06-16] MEDS ORDERED: LEVA500T20 PO (08:38)
--- NOTE | 2017-06-16 08:41 | HHI.DCPOC ---
Discharge Care Plan Diagnosis: (1) Hypothyroidism (2) Hypertension (3) Hydronephrosis (4) Renal colic on right side (5) Ureteral calculus, right Goals to Promote Your Health - Followup with Dr. Aguilera in 1 week, call for an appt - Complete an additional 5 days of Levaquin 500mg once daily (antibiotic) - Followup with your PCP, Dr. Zavala, in 1 week, call for an appt. - Drink plenty of fluids to keep kidneys flushed - Repeat labs prior to followup with your PCP. Directions to Meet Your Goals Take your medications as prescribed Follow your dietary instruction Follow activity as directed Keep your appointments as scheduled Take your immunizations and boosters as scheduled If your symptoms worsen call your PCP, if no PCP go to Urgent Care Center or Emergency Room Smoking is Dangerous to Your Health. Avoid second hand smoke Call the 24-hour hour crisis hotline for domestic abuse at Razia Cho Jun 16, 2017 08:41
[2017-06-16] MEDS ORDERED: POTASSIUM CHLORIDE 20 MEQ CONTROLLED RELEASE TAB PO ONE (08:45)
[2017-06-16 08:57] VITALS: BP 172/73; PULSE 83; RESP 18; TEMP 99.3; O2SAT 95
--- NOTE | 2017-06-16 08:57 | HHI.PR ---
Subjective Remarks Pt overall feeling much better today Less abdominal pain Tolerating liquids and some foods but not much appetite. Afebrile Pt is anxious to go home Objective Vitals Vital Signs Date Time Temp Pulse Resp B/P (MAP) Pulse Ox O2 Delivery O2 Flow Rate FiO2 06/16/17 04:42 98.3 72 17 163/70 (101) 93 06/16/17 00:45 70 152/68 (96) 06/15/17 23:41 98.0 73 15 171/70 (103) 95 06/15/17 21:05 83 150/70 (96) 06/15/17 20:10 93 06/15/17 19:45 99.2 97 17 168/73 (104) 95 06/15/17 16:05 93 06/15/17 15:34 97.3 97 20 133/66 (88) 94 06/15/17 14:30 98.0 91 18 138/63 (88) 97 06/15/17 13:45 91 15 114/56 (75) 97 Nasal Cannula 4 06/15/17 13:30 100 15 118/56 (76) 96 Nasal Cannula 4 06/15/17 13:19 98.9 97 15 125/54 (77) 96 Simple Mask 4 06/16/17 06/16/17 06/17/17 15:00 23:00 07:00 # Bowel Movements 1 Result Diagram: 06/16/17 0655 06/16/17 0655 Other Results Laboratory Tests Test 06/14/17 19:55 06/15/17 14:45 06/16/17 06:55 White Blood Count 31.6 TH/MM3 24.3 TH/MM3 15.9 TH/MM3 Red Blood Count 4.27 MIL/MM3 3.89 MIL/MM3 3.84 MIL/MM3 Hemoglobin 9.8 GM/DL 9.0 GM/DL 8.9 GM/DL Hematocrit 31.6 % 28.8 % 28.1 % Mean Corpuscular Volume 74.0 FL 74.0 FL 73.3 FL Mean Corpuscular Hemoglobin 23.1 PG 23.1 PG 23.3 PG Mean Corpuscular Hemoglobin Concent 31.2 % 31.2 % 31.8 % Red Cell Distribution Width 17.8 % 18.0 % 17.5 % Platelet Count 371 TH/MM3 297 TH/MM3 265 TH/MM3 Mean Platelet Volume 7.7 FL 7.8 FL 7.9 FL CBC Comment AUTO DIFF DIFF FINAL DIFF FINAL Differential Total Cells Counted 100 Neutrophils % (Manual) 78 % Band Neutrophils % 18 % Lymphocytes % 2 % Monocytes % 1 % Neutrophils # (Manual) 30.7 TH/MM3 Myelocytes 1 % Differential Comment FINAL DIFF MANUAL Toxic Vacuolation PRESENT Dohle Bodies PRESENT Platelet Estimate NORMAL Platelet Morphology Comment NORMAL Ovalocytes 1+ Neutrophils (%) (Auto) 86.0 % 77.0 % Lymphocytes (%) (Auto) 7.2 % 11.9 % Monocytes (%) (Auto) 6.1 % 8.6 % Eosinophils (%) (Auto) 0.3 % 1.7 % Basophils (%) (Auto) 0.4 % 0.8 % Neutrophils # (Auto) 20.9 TH/MM3 12.2 TH/MM3 Lymphocytes # (Auto) 1.8 TH/MM3 1.9 TH/MM3 Monocytes # (Auto) 1.5 TH/MM3 1.4 TH/MM3 Eosinophils # (Auto) 0.1 TH/MM3 0.3 TH/MM3 Basophils # (Auto) 0.1 TH/MM3 0.1 TH/MM3 Blood Urea Nitrogen 14 MG/DL 7 MG/DL Creatinine 0.64 MG/DL 0.54 MG/DL Random Glucose 83 MG/DL 84 MG/DL Calcium Level 8.5 MG/DL 8.2 MG/DL Sodium Level 141 MEQ/L 141 MEQ/L Potassium Level 3.8 MEQ/L 3.2 MEQ/L Chloride Level 111 MEQ/L 111 MEQ/L Carbon Dioxide Level 26.1 MEQ/L 22.6 MEQ/L Anion Gap 4 MEQ/L 7 MEQ/L Estimat Glomerular Filtration Rate 91 ML/MIN 111 ML/MIN Magnesium Level 1.7 MG/DL Imaging Last 72 hours Impressions Chest X-Ray 06/14/17148 Signed Impressions: Service Date/Time: Wednesday, June 14, 2017 02:01 - CONCLUSION: 1. Cardiomegaly. No acute pulmonary disease. 2. Hiatal hernia Kristopher Lovell MD Abdomen/Pelvis CT 06/14/17148 Signed Impressions: Service Date/Time: Wednesday, June 14, 2017 02:59 - CONCLUSION: 1. Right hydronephrosis and hydroureter with an 11 mm distal right ureteral stone 2. Hiatal hernia Kristopher Lovell MD Objective Remarks General: NAD, AAOx3 Chest: CTA Cardiac: Regular Abd: +BS, soft, mostly nontender today some minimal right flank discomfort with palpation (much improved) Ext: No edema A/P Problem List: (1) Renal colic on right side ICD Codes: N23 - Unspecified renal colic Status: Acute Plan: - Pt is a 72 y/o WF with HTN, Hypothyroidism, and tobacco use. - She presented to the ED at [facility] on 06/14/17 with complaints of right flank/ back pain, nausea and vomiting that began a few days ago but significantly worsened on the evening of 06/13. - In the ED, pt was found to have an elevated WBC count of 18/2 and microcytic anemia on blood work. - CT Abd/pelvis (06/14) --> Right hydronephrosis and hydroureter with an 11 mm distal right ureteral stone 2 - Pt was given IVF, pain control PRN and antiemetics in the ED and was transferred to [facility] for Urology evaluation - Appreciate Urology consultation - Pt underwent cystoscopy with right RPG and right ureteral stent insertion on 06/[address] Aguilera. - Cultures of the urine are pending. - Stop IVF - Pain is better controlled - WBC count is improving, down to 15.9 today - Cont. Levaquin 500mg po daily x an additional 5 days for a total of 7 days - She is improved clinically and pain is better controlled. Pt has been cleared for discharge by Urology. - We will get a repeat CBC and BMP in 3-5 days. - She will need to followup with Dr. Aguilera in 1-2 weeks - Pt will need to followup with her PCP, Dr. Zavala, in 1 week. (2) Hydronephrosis ICD Codes: N13.30 - Unspecified hydronephrosis Status: Acute Plan: - See above. (3) Hypertension ICD Codes: I10 - Essential (primary) hypertension Status: Chronic Plan: - BP stable with pain control - Monitor (4) Hypothyroidism ICD Codes: E03.9 - Hypothyroidism, unspecified Status: Chronic Plan: - Continue home medication. - TSH at goal in September of this year. (5) Tobacco use ICD Codes: Z72.0 - Tobacco use Plan: - Encourage her to stop smoking. She cannot tolerate Chantix. Has failed various interventional therapies as an outpatient. - NicoDerm ordered but pt refused. Problem Qualifiers (1) Hydronephrosis: Qualified Codes: N13.2 - Hydronephrosis with renal and ureteral calculous obstruction (2) Hypertension: Qualified Codes: I10 - Essential (primary) hypertension Razia Cho Jun 16, 2017 08:56
[2017-06-16] MEDS ORDERED: LEVOFLOXACIN 500 MG TAB PO SCH (09:00)
--- NOTE | 2017-06-16 10:44 | HHI.PR ---
Subjective Patient symptoms today Postoperative day #1 right stent placement Feels much better Anxious to go home Voiding well Objective Vital Signs Vital Signs Date Time Temp Pulse Resp B/P (MAP) Pulse Ox O2 Delivery O2 Flow Rate FiO2 06/16/17 08:57 99.3 83 18 172/73 (106) 95 06/16/17 04:42 98.3 72 17 163/70 (101) 93 06/16/17 00:45 70 152/68 (96) 06/15/17 23:41 98.0 73 15 171/70 (103) 95 06/15/17 21:05 83 150/70 (96) 06/15/17 20:10 93 06/15/17 19:45 99.2 97 17 168/73 (104) 95 06/15/17 16:05 93 06/15/17 15:34 97.3 97 20 133/66 (88) 94 06/15/17 14:30 98.0 91 18 138/63 (88) 97 06/15/17 13:45 91 15 114/56 (75) 97 Nasal Cannula 4 06/15/17 13:30 100 15 118/56 (76) 96 Nasal Cannula 4 06/15/17 13:19 98.9 97 15 125/54 (77) 96 Simple Mask 4 Intake & Output 06/16/17 06/16/17 07:00 19:00 Intake Total 1235 ml Balance 1235 ml Intake IV Total 1235 ml # Voids 1 # Bowel Movements 1 Result Diagram: 06/16/1755 06/16/17 0655 Objective Remarks Abdomen soft, nondistended, nontender No CVA tenderness Medications and IVs Current Medications Medications (Trade) Dose Ordered Sig/Dagoberto Route Start Time Stop Time Status Last Admin (NS Flush) 2 ml UNSCH PRN IV FLUSH 06/14/17 02:00 06/15/17 11:40 (Morphine Inj) 4 mg Q3H PRN IV PUSH 06/14/17 05:45 06/14/17 16:03 (Zofran Inj) 4 mg Q6HR PRN IV PUSH 06/14/17 05:45 06/15/17 22:24 (Phenergan Inj) 25 mg Q6H PRN IM 06/14/17 05:45 06/14/17 12:26 (Synthroid) 112 mcg DAILY@0700 PO 06/14/17 07:00 06/16/17 06:20 (Habitrol 21 Mg Patch.24 Hr) 1 patch DAILY T-DERMAL 06/14/17 09:00 Miscellaneous Information 1 HS T-DERMAL 06/14/17 21:00 Lactated Ringer's 1,000 ml @ 30 mls/hr Q24H PRN IV 06/14/17 23:15 06/17/17 23:14 06/15/17 11:40 Sodium Chloride 500 ml @ 30 mls/hr [id number] PRN IV 06/14/17 23:15 06/17/17 23:14 (Lopressor) 25 mg DEWAXER PRN PO 06/14/17 23:15 06/17/17 23:14 (Betadine 5% Antisepsis Kit) 1 applic DEWAXER PRN EACH NARE 06/14/17 23:15 06/17/17 23:14 (Chlorhexidine 2% Cloth) 3 pack DEWAXER PRN TOPICAL 06/14/17 23:15 06/17/17 23:14 (NovoLIN R INJ) See Protocol Table ... DEWAXER PRN SQ 06/14/17 23:15 06/17/17 23:14 (Jasper 7.5-325 Mg) 1 tab Q4H PRN PO 06/15/17 09:00 (Percocet 5-325 Mg) 1 tab Q6H PRN PO 06/15/17 13:15 06/15/17 22:25 (Percocet 5-325 Mg) 2 tab Q6H PRN PO 06/15/17 13:15 (Levaquin) 500 mg DAILY PO 06/16/17 09:00 06/16/17 08:23 Miscellaneous Information ALL NURSING DEPARTME... UNSCH PRN .XX 06/15/17 13:21 06/16/17 13:20 Assessment and Plan Assessment and Plan Urologic Impression: Status post right stent placement for obstructing right distal ureteral calculus causing hydronephrosis Plan: #1 urologically stable for discharge home #2 patient advised to contact my office on Monday to make arrangements for outpatient right ureteroscopy with laser lithotripsy and stent removal [phone]. Ricky Aguilera MD Jun 16, 2017 10:43
== END 2017-06-16 11:38 | disposition home or self-care (01) ==
LOC: PHED 01:46 → PHEDA 04:50 → PHEDH 08:49 → NEPHCDU 13:39
PROVIDERS: ADMIT Hospitalist; ATTEND Hospitalist
DX: N13.2 Hydronephrosis with renal and ureteral calculous obstruction (principal); I10 Essential (primary) hypertension; G25.0 Essential tremor; K21.9 Gastro-esophageal reflux disease without esophagitis; D50.9 Iron deficiency anemia, unspecified; D72.829 Elevated white blood cell count, unspecified; E03.9 Hypothyroidism, unspecified; E78.5 Hyperlipidemia, unspecified; R10.30 Lower abdominal pain, unspecified; R11.2 Nausea with vomiting, unspecified; D75.89 Other specified diseases of blood and blood-forming organs; Z90.710 Acquired absence of both cervix and uterus
CPT/HCPCS: 00910; 52332; 71010; 74176; 74420; 80048; 80053; 81001; 83605; 83690; 83735; 85007; 85025; 85027; 86077; 86850; 86870; 86900; 86901; 86920; 86922; 87015; 87040; 87070; 87102; 87205; 87206; 93005; 96361; 96365; 96366; 96375; 96376; 99285; C1769; G0378; J0330; J1956; J2270; J2370; J2405; J2543; J2550; J3010; J3480; J7030; J7120; 87116; 99281

== ENCOUNTER → 2017-08-07 | Day surgery (SDC) | payer MEDICARE ==
[~2017-08-07] VITALS: Ht 152.4 cm; Wt 61.0 kg
[~2017-08-07] MED LIST changes: +*MEPERIDINE 25 MG INJ VIAL PERIprocedural Use ONLY ONE; +CEPH-459 PO; +CHLORHEXIDINE GLUCONATE 2 % 1 PACK (2 CLOTHS) TOPICAL PRN; -DICL1GEL TD; +DO NOT ADM ANY ANTICOAGULANT DRUGS PRN; +INSULIN HUMAN REGULAR 1,000 UNITS/10 ML VIAL SQ PRN; +IOHEXOL 350 MG/ML 50 ML BTL (for RAD DIAG) OTHER ONE; +LACTATED RINGER'S 1000 ML IV PRN; +METOPROLOL TARTRATE 25 MG TAB PO PRN; +ONDANSETRON HCL 4 MG/2 ML VIAL IV PUSH PRN; +PERC5TAB12 PO; +POVIDONE IODINE 5% (ANTISEPSIS KIT) 4 APPLICATIONS EACH NARE PRN; -PRED20 PO; +SODIUM CHLORID 0.9% 500 ML IV PRN; +TEMA15CA PO; -TRAM50 PO; +ceFAZolin 1,000 MG/NS 100 ML IV SCH; +oxyCODONE/ACETAMINOPHEN 5 MG/325 MG TAB PO PRN
[2017-08-07 09:29] LABS: AUTOMATED NEUTROPHIL # 5.8 TH/MM3 (1.8-7.7); BASOPHIL # 0.1 TH/MM3 (0-0.2); BASOPHIL % 1.2 % (0.0-2.0); EOSINOPHIL # 0.2 TH/MM3 (0-0.4); EOSINOPHIL % 1.8 % (0.0-4.0); HEMATOCRIT 34.7 % (35.0-46.0); HEMO FLAGS DIFF FINAL; LYMPH % 27.4 % (9.0-44.0); LYMPHOCYTE # 2.6 TH/MM3 (1.0-4.8); MEAN CELL VOLUME 73.6 FL (80.0-100.0); MEAN CORPUSCULAR HGB CONC 31.2 % (32.0-36.0); MONO % 7.7 % (0.0-8.0); NEUT % 61.9 % (16.0-70.0); PLATELET COUNT 465 TH/MM3 (150-450); RED BLOOD COUNT 4.71 MIL/MM3 (4.00-5.30); RED CELL DISTRIBUTION WIDTH 19.1 % (11.6-17.2); WHITE BLOOD COUNT 9.4 TH/MM3 (4.0-11.0)
--- NOTE | 2017-08-07 11:59 | PD.OP ---
Operative Report Date of Surgery: Aug 07, 2017 Preoperative Diagnosis: (1) Ureteral calculus, right Postoperative Diagnosis: (1) Ureteral calculus, right Procedure: Cystoscopy, endoscopic removal of right ureteral stent, right retrograde pyelogram, right ureteroscopy with laser lithotripsy and right ureteral catheter placement. Surgeon: Ricky Aguilera Ict Support Engineer(s): None Operation and Findings: Indication for procedure: Case of a pleasant 72-year-old female with history of obstructing 11 mm right distal ureteral calculus who is status post right stent placement. Patient presents today for definitive management of the right distal stone with ureteroscopy and laser lithotripsy. Operative procedures in detail: Patient was brought to the operating suite and placed supine on the OR table. She was then placed and general anesthesia. She was then repositioned in the dorsolithotomy position and prepped and draped in normal sterile fashion. After appropriate timeout was undertaken I proceeded with cystoscopic evaluation utilizing the rigid cystoscope with the 30 lens and 20 Swiss sheath. The previously placed right ureteral stent could be seen protruding from the right ureteral orifice. There was clear reflux of urine noted from the left ureteral orifice. There were no bladder mucosal lesions, calculi or diverticula formation. I then grasped the distal loop of the right stent with flexible forceps and gently removed the stent. The stent was carefully inspected ascertainment no stent fragments were left behind. I then advanced a sensor 0.35 wire up the patient's right ureter all the way up to the right renal pelvis. The cystoscope was withdrawn and the wire secured to sterile drape with hemostat. I then used a self dilating ureteroscope and easily advanced the scope up to the point of the obstructing calculus seen within the distal ureter. The stone was broken up into multiple smaller fragments utilizing the 200 holmium laser fiber. Subsequent to this several of the larger fragments were retrieved with a 2.4 Swiss stone basket and sent off to pathology for chemical composition analysis. Repeat ureteroscopy failed to demonstrate any further obstructing stones. The ureteroscope was withdrawn and the cystoscope was reintroduced and the wire backloaded. A 5 Swiss open- ended catheter was advanced over the wire several centimeters from the ureteral orifice and the wire withdrawn. A retrograde pyelogram study was then performed that demonstrated prompt filling and drainage from the right collecting system. The open end catheter was advanced over the wire all the way up to the right renal pelvis and the wire and cystoscope withdrawn. A 16 Swiss 10 cc Acuña catheter was placed and the open-ended catheter was secured to the Acuña via a connector. Both catheters were then placed to gravity drainage. The patient tolerated the procedures without complications and was transferred to the PACU in satisfactory condition. Ricky Aguilera MD Aug 07, 2017 11:59
[2017-08-07 13:44] VITALS: BP 142/66; PULSE 62; RESP 18; TEMP 98.1; O2SAT 99
== END | disposition home or self-care (01) ==
LOC: HSDC 07:39
PROVIDERS: ATTEND Urology
DX: N20.1 Calculus of ureter (principal)
CPT/HCPCS: 00918; 52356; 82365; 82370; 85025; 88300; C1769; J2175; J7120; Q9967

== ENCOUNTER → 2017-09-20 | Day surgery (SDC) | payer MEDICARE ==
[~2017-09-20] MED LIST changes: -*MEPERIDINE 25 MG INJ VIAL PERIprocedural Use ONLY ONE; -CEPH-459 PO; -CHLORHEXIDINE GLUCONATE 2 % 1 PACK (2 CLOTHS) TOPICAL PRN; +DEXAMETHASONE SOD PHOS 4 MG/ML VIAL IV; +DO NOT ADM ANY ANTICOAGULANT DRUGS; -DO NOT ADM ANY ANTICOAGULANT DRUGS PRN; -INSULIN HUMAN REGULAR 1,000 UNITS/10 ML VIAL SQ PRN; -IOHEXOL 350 MG/ML 50 ML BTL (for RAD DIAG) OTHER ONE; -LACTATED RINGER'S 1000 ML IV PRN; +LIDOCAINE HCL 1% PF 5 ML SYRINGE OTHER; +METOPROLOL TARTRATE 25 MG TAB PO; -METOPROLOL TARTRATE 25 MG TAB PO PRN; +ONDANSETRON HCL 4 MG/2 ML VIAL IV PUSH; -ONDANSETRON HCL 4 MG/2 ML VIAL IV PUSH PRN; -PERC5TAB12 PO; +POVIDONE IODINE 5% (ANTISEPSIS KIT) 4 APPLICATIONS EACH NARE; -POVIDONE IODINE 5% (ANTISEPSIS KIT) 4 APPLICATIONS EACH NARE PRN; +PROPOFOL 200 MG/20 ML AMP IV; +SODIUM CHLORID 0.9% 500 ML IV; -SODIUM CHLORID 0.9% 500 ML IV PRN; -SYNT112T PO; -TEMA15CA PO; -ceFAZolin 1,000 MG/NS 100 ML IV SCH; -oxyCODONE/ACETAMINOPHEN 5 MG/325 MG TAB PO PRN
[2017-09-20] MEDS: CHLORHEXIDINE GLUCONATE 2 % 1 PACK (2 CLOTHS) TOPICAL (09:30)
[2017-09-20] MEDS: LACTATED RINGER'S 1000 ML IV (09:35)
[2017-09-20 10:06] LABS: AUTOMATED NEUTROPHIL # 5.5 TH/MM3 (1.8-7.7); BASOPHIL # 0.1 TH/MM3 (0-0.2); BASOPHIL % 1.2 % (0.0-2.0); EOSINOPHIL # 0.2 TH/MM3 (0-0.4); EOSINOPHIL % 2.3 % (0.0-4.0); HEMATOCRIT 32.6 % (35.0-46.0); HEMO FLAGS DIFF FINAL; HEMOGLOBIN 10.5 GM/DL (11.6-15.3); LYMPH % 29.4 % (9.0-44.0); LYMPHOCYTE # 2.6 TH/MM3 (1.0-4.8); MEAN CELL VOLUME 72.2 FL (80.0-100.0); MEAN CORPUSCULAR HEMOGLOBIN 23.2 PG (27.0-34.0); MEAN CORPUSCULAR HGB CONC 32.1 % (32.0-36.0); MEAN PLATELET VOLUME 7.4 FL (7.0-11.0); MONO % 5.8 % (0.0-8.0); MONOCYTE # 0.5 TH/MM3 (0-0.9); NEUT % 61.3 % (16.0-70.0); PLATELET COUNT 376 TH/MM3 (150-450); RED BLOOD COUNT 4.52 MIL/MM3 (4.00-5.30); RED CELL DISTRIBUTION WIDTH 17.6 % (11.6-17.2); WHITE BLOOD COUNT 8.9 TH/MM3 (4.0-11.0)
== END | disposition home or self-care (01) ==
LOC: HSDC 08:04
DX: N20.0 Calculus of kidney (principal); Z72.0 Tobacco use
CPT/HCPCS: 00873; 50590; 74018; 85025

== ENCOUNTER 2018-03-17 01:28 | Inpatient (IN) ==
[2018-03-17] MEDS ORDERED: Morphine Inj 4 MG/ML Vial IV.PUSH ONE (02:17)
[2018-03-17] MEDS ORDERED: Sod Chloride 0.9% Inj 1,000 ML IV.SIG ONE (02:17)
--- NOTE | 2018-03-17 02:23 | ED ---
HPI General Chief Complaint: Back Pain/Injury Stated Complaint: ABD Pain Time Seen by Provider: 03/17/18 02:12 Source: patient Mode of arrival: EMS History of Present Illness HPI Narrative: The patient is a 72-year-old female presented complaining of right flank pain. Has past medical history significant for kidney stones and recent procedure. Unable to obtain previous records. Patient states that approximately 11:30 PM last night she started having constant right flank pain and urinary symptoms. She has history of hypertension, diverticulosis and is status post thyroidectomy. Several episodes of nausea and vomiting. Denies any fever. MD Complaint: back pain Duration: constant Similar Symptoms Previously: Yes Location: right flank Severity: severe Quality: sharp and stabbing Radiation: none Severity scale (1-10): 10 Relieving factors: none Exacerbating factors: movement Related Data Home Medications Medication Instructions Recorded Confirmed levothyroxine 100 mcg PO DAILY 03/17/18 03/17/18 temazepam [Restoril] 15 mg PO HS PRN 03/17/18 03/17/18 Allergies Allergy/AdvReac Type Severity Reaction Status Date / Time aspirin Allergy Mild Burning Verified 03/17/18 01:33 Review of Systems ROS Unobtainable All other systems reviewed negative except as stated in HPI PMFSH History History Provided By: Patient Medical History Medical History Hypothyroidism (Acute) Kidney stones (Acute) Social History Social History Second Hand Smoke Exposure: No Smoking Status: Never smoker How Often Do You Have a Drink Containing Alcohol: Never Recent Travel in [facility] within the Last 8 Weeks: No Recent Out of Country Travel within the Last 8 Weeks: No Exam Narrative Exam Narrative: GENERAL: Alert and oriented in no distress not appearing toxic. SKIN: Focused skin assessment warm/dry. HEAD: Atraumatic. Normocephalic. EYES: Pupils equal and round. No scleral icterus. No injection or drainage. ENT: No nasal bleeding or discharge. Mucous membranes pink and moist. NECK: Trachea midline. No JVD. CARDIOVASCULAR: Regular rate and rhythm. No murmur appreciated. RESPIRATORY: No accessory muscle use. Clear to auscultation. Breath sounds equal bilaterally. GASTROINTESTINAL: Abdomen soft, non-tender, nondistended. Hepatic and splenic margins not palpable. MUSCULOSKELETAL: No obvious deformities. No clubbing. No cyanosis. No edema. NEUROLOGICAL: Awake and alert. No obvious cranial nerve deficits. Motor grossly within normal limits. Normal speech. PSYCHIATRIC: Appropriate mood and affect; insight and judgment normal. Back/Spine/Pelvis Back: CVA tenderness (RIGHT) Course Reevaluation(s) Reevaluation #1: Patient was initially given IV morphine with relief of her pain but is now returning we will going to give her IV Dilaudid. She appears to have pyelonephritis with an obstructive uropathy not septic at this time. Time: 04:11 Initial Documented Vital Signs Temperature 97.8 F 03/17/18 01:33 Pulse Rate 77 03/17/18 01:33 Respiratory Rate 22 03/17/18 01:33 Blood Pressure 179/135 H 03/17/18 01:33 Pulse Oximetry 97 03/17/18 01:33 Last Documented Vital Signs Temperature 97.8 F 03/17/18 01:33 Pulse Rate 74 03/17/18 04:37 Respiratory Rate 16 03/17/18 04:37 Blood Pressure 141/74 H 03/17/18 06:51 Pulse Oximetry 98 03/17/18 04:37 Medical Decision Making MDM Narrative Medical decision making narrative: Presentation findings suggestive of pyelonephritis. Starting antibiotics. Obstructive uropathy noted on CT which is nothing new for the patient. No lactic acidosis was noted. Nausea resolved with IV Reglan hemodynamically stable then appearing toxic alert and oriented without any focal neurologic deficits. Kidney function intact Lab Data Result diagrams: 03/17/18 02:40 03/17/18 02:40 Lab Results 03/17/18 03/17/18 03/17/18 Range/Units 02:40 02:40 03:55 WBC 14.2 H (4.0-11.0) th/mm3 RBC 5.00 (4.00-5.30) mil/mm3 Hgb 11.1 L (11.6-15.3) gm/dL Hct 36.0 (35.0-46.0) % MCV 72.0 L (80.0-100.0) fL MCH 22.3 L (27.0-34.0) pg MCHC 30.9 L (32.0-36.0) % RDW 19.0 H (11.6-17.2) % Plt Count 436 (150-450) th/mm3 MPV 8.3 (7.0-11.0) fL Neut % (Auto) 80.7 H (16.0-70.0) % Lymph % (Auto) 12.1 (9.0-44.0) % Linn % (Auto) 4.9 (0.0-8.0) % Eos % (Auto) 1.2 (0.0-4.0) % Baso % (Auto) 1.1 (0.0-2.0) % Neut # (Auto) 11.4 H (1.8-7.7) th/mm3 Lymph # (Auto) 1.7 (1.0-4.8) th/mm3 Linn # (Auto) 0.7 (0.0-0.9) th/mm3 Eos # (Auto) 0.2 (0.0-0.4) th/mm3 Baso # (Auto) 0.2 (0.0-0.2) th/mm3 WBC Differential . Differential Comment Auto diff final Sodium 139 (136-145) meq/L Potassium 4.0 (3.5-5.1) meq/L Chloride 111 H (98-107) meq/L Carbon Dioxide 21.6 (21.0-32.0) meq/L Anion Gap 6 (5-15) meq/L BUN 10 (7-18) mg/dL Creatinine 0.69 (0.50-1.00) mg/dL Estimated GFR 83 L (>89) mL/min Random Glucose 121 H (74-106) mg/dL Lactic Acid (0.4-2.0) mmol/L Calcium 9.3 (8.5-10.1) mg/dL Total Bilirubin 0.2 (0.2-1.0) mg/dL AST 15 (15-37) U/L ALT 18 (10-53) U/L Alkaline Phosphatase 155 H (45-117) U/L Total Protein 7.7 (6.4-8.2) g/dL Albumin 4.0 (3.4-5.0) g/dL Lipase 137 (73-393) U/L Urine Color Yellow (Yellw/Straw) Urine Clarity Hazy H (Clear) Urine pH 7.0 (5.0-8.5) Ur Specific Rudyard 1.008 (1.002-1.035) Urine Protein 30 H (Neg-Trace) mg/dL Urine Glucose (UA) Negative (Negative) mg/dL Urine Ketones Negative (Negative) mg/dL Urine Occult Blood Moderate H (Negative) Urine Nitrate Negative (Negative) Urine Bilirubin Negative (Negative) Urine Urobilinogen Less than 2 (Less than 2) mg/dL Ur Leukocyte Esterase Large H (Negative) Urine RBC 14 H (0-3) /hpf Urine WBC 30 H (0-5) /hpf Amorphous Sediment Rare H (None) /hpf Urine Bacteria Few H (None) /hpf Urine Mucus Few H (Occasional) /lpf Micro UA Comment Culture indicated Urine Culture Comments Culture indicated 03/17/18 Range/Units 04:15 WBC (4.0-11.0) th/mm3 RBC (4.00-5.30) mil/mm3 Hgb (11.6-15.3) gm/dL Hct (35.0-46.0) % MCV (80.0-100.0) fL MCH (27.0-34.0) pg MCHC (32.0-36.0) % RDW (11.6-17.2) % Plt Count (150-450) th/mm3 MPV (7.0-11.0) fL Neut % (Auto) (16.0-70.0) % Lymph % (Auto) (9.0-44.0) % Linn % (Auto) (0.0-8.0) % Eos % (Auto) (0.0-4.0) % Baso % (Auto) (0.0-2.0) % Neut # (Auto) (1.8-7.7) th/mm3 Lymph # (Auto) (1.0-4.8) th/mm3 Linn # (Auto) (0.0-0.9) th/mm3 Eos # (Auto) (0.0-0.4) th/mm3 Baso # (Auto) (0.0-0.2) th/mm3 WBC Differential Differential Comment Sodium (136-145) meq/L Potassium (3.5-5.1) meq/L Chloride (98-107) meq/L Carbon Dioxide (21.0-32.0) meq/L Anion Gap (5-15) meq/L BUN (7-18) mg/dL Creatinine (0.50-1.00) mg/dL Estimated GFR (>89) mL/min Random Glucose (74-106) mg/dL Lactic Acid 1.1 (0.4-2.0) mmol/L Calcium (8.5-10.1) mg/dL Total Bilirubin (0.2-1.0) mg/dL AST (15-37) U/L ALT (10-53) U/L Alkaline Phosphatase (45-117) U/L Total Protein (6.4-8.2) g/dL Albumin (3.4-5.0) g/dL Lipase (73-393) U/L Urine Color (Yellw/Straw) Urine Clarity (Clear) Urine pH (5.0-8.5) Ur Specific Rudyard (1.002-1.035) Urine Protein (Neg-Trace) mg/dL Urine Glucose (UA) (Negative) mg/dL Urine Ketones (Negative) mg/dL Urine Occult Blood (Negative) Urine Nitrate (Negative) Urine Bilirubin (Negative) Urine Urobilinogen (Less than 2) mg/dL Ur Leukocyte Esterase (Negative) Urine RBC (0-3) /hpf Urine WBC (0-5) /hpf Amorphous Sediment (None) /hpf Urine Bacteria (None) /hpf Urine Mucus (Occasional) /lpf Micro UA Comment Urine Culture Comments Imaging Data Radiologist's impression: Abdomen/Pelvis CT 03/17/18 02:17 CONCLUSION: 1. Multiple bilateral renal calculi again seen. 2 calculi now identified at the proximal right ureter/UVJ. They measure 6 and 7 mm in diameter. Previously identified distal right ureteral calculi no longer seen. Moderate right-sided hydronephrosis. 2. Degenerative findings of lumbar spine. 3. Hiatal hernia. Discharge Plan Discharge Disposition Patient Disposition: 30 Still Patient Discharge Details Diagnosis: Pyelonephritis Physicians Team ED Provider: Abdirizak Fu Primary Care Provider: UNKNOWN, Attending Provider: Conor Harrington Other Providers: Lc Ngo Discharge Interventions Interventions: ED Discharge Assessment Last Done: 03/17/18 07:47 Vital Signs Last Done: 03/17/18 04:37 Status ED Status: Left Department Discharge Information Discharge Date/Time: 03/17/18 07:45
[2018-03-17 03:12] LABS: Baso # (Auto) 0.2 th/mm3 (0.0-0.2); Baso % (Auto) 1.1 % (0.0-2.0); Eos # (Auto) 0.2 th/mm3 (0.0-0.4); Eos % (Auto) 1.2 % (0.0-4.0); Hemoglobin 11.1 gm/dL (11.6-15.3); Lymph # (Auto) 1.7 th/mm3 (1.0-4.8); Lymph % (Auto) 12.1 % (9.0-44.0); Mean Corpuscular Hemoglobin 22.3 pg (27.0-34.0); Mean Platelet Volume 8.3 fL (7.0-11.0); Mono # (Auto) 0.7 th/mm3 (0.0-0.9); Mono % (Auto) 4.9 % (0.0-8.0); Neut # (Auto) 11.4 th/mm3 (1.8-7.7); Neut % (Auto) 80.7 % (16.0-70.0); Platelet Count 436 th/mm3 (150-450); White Blood Count 14.2 th/mm3 (4.0-11.0)
[2018-03-17 03:14] LABS: Alanine Aminotransferase 18 U/L (10-53); Anion Gap 6 meq/L (5-15); Aspartate Aminotransferase 15 U/L (15-37); Blood Urea Nitrogen 10 mg/dL (7-18); Calcium 9.3 mg/dL (8.5-10.1); Carbon Dioxide 21.6 meq/L (21.0-32.0); Chloride 111 meq/L (98-107); Glomerular Filtration Rate 83 mL/min (>89); Glucose,Random 121 mg/dL (74-106); Lipase 137 U/L (73-393); Sodium 139 meq/L (136-145)
[2018-03-17 03:15] LABS: Mean Corpuscular HGB Conc 30.9 % (32.0-36.0)
[2018-03-17 03:16] LABS: Alkaline Phosphatase 155 U/L (45-117); Total Protein 7.7 g/dL (6.4-8.2)
--- NOTE | 2018-03-17 03:53 | CT ---
EXAM DATE: 03/17/2018 3:22 AM EDT AGE/SEX: 72 years / Female INDICATIONS: Right flank pain. CLINICAL DATA: This is the patient's initial encounter. Patient reports that signs and symptoms have been present for 1 day and indicates a pain score of 7/10. MEDICAL/SURGICAL HISTORY: Renal calculi. None. RADIATION DOSE: 5.64 CTDI (mGy) COMPARISON: [facility], CT ABDOMEN & PELVIS W/O CONTRAST, 06/14/2017. . TECHNIQUE: Multiple contiguous axial images were obtained through the abdomen. Images were obtained using multiple row detector helical technique. Using automated exposure control and adjustment of the mA and/or kV according to patient size, radiation dose was kept as low as reasonably achievable to o btain optimal diagnostic quality images. DICOM format image data is available electronically for rev iew and comparison. FINDINGS: Lower Lungs: The visualized lower lungs are clear. Liver: Anterior right lobe cyst unchanged. Liver otherwise within normal limits. Gallbladder within n ormal limits. Spleen: Homogeneous density without enlargement. Pancreas: Unremarkable without mass or calcification. Kidneys: Multiple bilateral renal calculi are again seen. There are 2 calculi now identified in the proximal right ureter at ureteropelvic junction measuring 7 mm and 6 mm. The more inferior calculus h as a mean Hounsfield unit value of 1200. The other scattered calculi in the right kidney measured 2 t o 3 mm in diameter. Moderate right-sided hydronephrosis. There is a 6 x 2 mm calculus in the lower po le on the left. The other left-sided renal calculi measure 2 to 3 mm in diameter. The previously iden tified distal right ureteral calculi are no longer seen. No ureteral calculi identified on the left. Adrenal Glands: Unremarkable. Aorta: Within normal limits in diameter. Bowel/Mesentery: No evidence of bowel dilatation. Hiatal hernia again seen. Scattered colonic divert icula. No evidence of acute diverticulitis. No free air or free fluid. Appendix within normal limits. Abdominal Wall: Intact. Retroperitoneum: No evidence of adenopathy in the retrocrural, para-aortic, or deep pelvic regions. Bladder: Contours are smooth. Reproductive Organs: Status post hysterectomy. Inguinal: The inguinal region is unremarkable without evidence of adenopathy. Bony Structures: Prominent degenerative findings of the lumbar spine. CONCLUSION: 1. Multiple bilateral renal calculi again seen. 2 calculi now identified at the proximal right urete r/UVJ. They measure 6 and 7 mm in diameter. Previously identified distal right ureteral calculi no lo nger seen. Moderate right-sided hydronephrosis. 2. Degenerative findings of lumbar spine. 3. Hiatal hernia. Electronically signed by: Berry Muhammad MD 03/17/2018 3:52 AM EDT
[2018-03-17 04:18] LABS: Amorphous Sediment,Urine Rare /hpf; Bacteria,Urine Few /hpf; Bilirubin,Urine Negative (Negative); Clarity,Urine Hazy (Clear); Color,Urine Yellow (Yellw/Straw); Glucose,Urine (UA) Negative (Negative); Leukocyte Esterase,Urine Large (Negative); Mucus,Urine Few /lpf (Occasional); Nitrite,Urine Negative (Negative); Specific Gravity,Urine 1.008 (1.002-1.035)
[2018-03-17] MEDS ORDERED: HYDROmorphone PF Inj 2 MG/ML Vial IV.PUSH ONE (04:40)
[2018-03-17] MEDS ORDERED: Acetaminophen 325 MG Tablet PO PRN (06:09)
[2018-03-17] MEDS: KCL 20 mEq/NACL 0.45% Inj 1,000 ML IV.CONT SCH ×2 (06:54→23:31)
--- NOTE | 2018-03-17 09:30 | P.HPIM ---
History of Present Illness Primary Care Physician: Dr. Denise Gill Chief Complaint: Right flank pain History of Present Illness: Mrs. Kilpatrick is a pleasant 72 y/o female with HTN, Hypothyroidism, nephrolithiasis and tobacco use. Pt presented to the ED at [facility] complaining of right flank pain. Has past medical history significant for kidney stones and previously underwent cystoscopy with right ureteral stent placement in 05/2017 and then had lithotripsy in 07/2017 and 08/[address] Aguilera. Patient states that approximately 11:30 PM last night she started having constant right flank pain, N/V and urinary symptoms. Pt had a CT Abd/pelvis in the ED which noted multiple bilateral renal calculi again seen, 2 calculi now identified at the proximal right ureter/UVJ which measure 6 and 7 mm in diameter, previously identified distal right ureteral calculi no longer seen, and moderate right- sided hydronephrosis. Pt was in significant pain and have nausea and dry heaves at the time of my examination and unable to provide much info. Past Medical Hx Nephrolithiasis Hypothyroidism GERD HTN Hyperlipidemia Nonthrombocytopenic purpura Osteoarthritis Osteopenia Essential tremor Lumbar degenerative disc disease Thrombocytosis Daily smoker Past Surgical Hx Extracorporeal shockwave lithotripsy right lower pole renal calculi on 09/20/[address] Aguilera Cystoscopy, endoscopic removal of right ureteral stent, right retrograde pyelogram, right ureteroscopy with laser lithotripsy and right ureteral catheter placement on 08/07/[address] Aguilera Cystoscopy, right retrograde pyelogram and right ureteral stent placement on with Dr. 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 This includes certification that hospital inpatient services are reasonable and necessary and in the case of services not specified as inpatient-only under 42 CFR 419.22(n), that they are appropriately provided as inpatient services in accordance to with the 2-midnight benchmark under 43 CFR 412.3(e) Estimated Total Length of Stay (Days): 3 Plans for Post Hospital Care: Not yet determined Review of Systems All other systems reviewed negative except as stated in HPI Constitutional: Denies chills, Denies fever(s) Cardiovascular: Denies chest pain, Denies shortness of breath Respiratory: Denies cough Gastrointestinal: Reports abdominal pain, Reports nausea, Reports vomiting PMFSH - History History Provided By: Patient - Medical History Medical History: Medical History (Last Reviewed 05/21/18 @ 10:20 by Yeny Diaz) Abnormal stools Anemia Blind Diverticulosis Eye globe prosthesis GERD (gastroesophageal reflux disease) Graves disease Hemorrhage following tonsillectomy and adenoidectomy Hiatal hernia History of hysterectomy Hx of blood transfusion reaction Hypothyroidism Kidney stones Nose fracture Osteoporosis Recent change in frequency of bowel movements Snoring - Tobacco History Second Hand Smoke Exposure: No Smoking Status: Never smoker - Alcohol History How Often Do You Have a Drink Containing Alcohol: Never - Travel History Recent Travel in the [place] Within the Last 8 Weeks: No Recent Travel Out of the Country Within the Last 8 Weeks: No - Immunization History Tetanus Immunization: Unsure Medications and Allergies Allergies Allergy/AdvReac Type Severity Reaction Status Date / Time aspirin Allergy Mild Burning Verified 05/21/18 10:20 NSAIDS (Non-Steroidal Allergy Joint Pain Verified 05/21/18 10:20 Anti-Inflamma Home Medications Medication Instructions Recorded Confirmed Type temazepam [Restoril] 15 mg PO HS PRN 03/17/18 05/21/18 History levothyroxine [Synthroid] 100 mcg PO DAILY 04/03/18 05/21/18 History Tylenol PM Extra Strength 2 tab PO PRN 05/21/18 05/21/18 History Active Medications: Active Medications Acetaminophen (Tylenol) 650 mg PO Q4H PRN PRN Reason: FEVER > 101 F Hydrocodone Bitart/Acetaminophen ([place]to 5/325) 1 tab PO Q4H PRN PRN Reason: PAIN SCALE 1 TO 5 Potassium Chloride/Sodium Chloride (Potassium Chlor 20 Meq/Nacl 0.45% Inj) 1, 000 mls @ 84 mls/hr IV.CONT .[id number] [facility] Last Admin: 03/17/18 06:54 Dose: 84 mls/hr Morphine Sulfate (Morphine Inj) 4 mg IV.PUSH Q2H PRN PRN Reason: PAIN SCALE 6 TO 10 Ondansetron HCl (Zofran Odt) 4 mg PO Q6H PRN PRN Reason: NAUSEA OR VOMITING Last Admin: 03/17/18 09:09 Dose: 4 mg Sodium Chloride (Ns Flush) 2 ml IV.FLUSH BID [facility] Last Admin: 03/17/18 09:09 Dose: 2 ml Sodium Chloride (Ns Flush) 2 ml IV.FLUSH PRN PRN PRN Reason: FLUSH AFTER USING IV ACCESS Exam Vital signs: Vital Signs 03/17/18 01:33 03/17/18 04:37 03/17/18 06:51 Temperature 97.8 F Pulse Rate 77 74 Respiratory Rate 22 16 Blood Pressure 179/135 H 146/81 H 141/74 H Pulse Oximetry 97 98 Intake & Output 03/16/18 03/17/18 03/17/18 18:59 06:59 18:59 Output Total 200 / 200 Balance -200 / -200 Weight 60.781 kg Output: Urine 200 / 200 Narrative: GENERAL: Ill appearing female SKIN: Warm and dry. HEENT: Atraumatic. Normocephalic. Pupils equal and round. No scleral icterus. No injection or drainage. No nasal bleeding or discharge. Mucous membranes pink and moist. NECK: Trachea midline. No JVD. CARDIO: Regular rate and rhythm. RESP: CTA bilaterally. ABD: +BS soft, nondistended. Right flank pain. EXT: Extremities without clubbing, cyanosis, or edema. No obvious deformities. NEURO: Awake and alert. No obvious cranial nerve deficits. Motor grossly within normal limits. Five out of 5 muscle strength in the arms and legs. Normal speech. PSYCHIATRIC: Appropriate mood and affect; insight and judgment normal. Results - Labs CBC & Chem 7: 03/19/18 07:07 03/19/18 07:07 Labs: Short CBC 03/17/18 Range/Units 02:40 WBC 14.2 H (4.0-11.0) th/mm3 Hgb 11.1 L (11.6-15.3) gm/dL Hct 36.0 (35.0-46.0) % Plt Count 436 (150-450) th/mm3 [facility] 03/17/18 02:40 Sodium 139 Potassium 4.0 Chloride 111 H Carbon Dioxide 21.6 BUN 10 Creatinine 0.69 Calcium 9.3 Liver Function 03/17/18 Range/Units 02:40 Total Bilirubin 0.2 (0.2-1.0) mg/dL AST 15 (15-37) U/L ALT 18 (10-53) U/L Alkaline Phosphatase 155 H (45-117) U/L Albumin 4.0 (3.4-5.0) g/dL Urine 03/17/18 Range/Units 03:55 Urine Color Yellow (Yellw/Straw) Urine Clarity Hazy H (Clear) Urine pH 7.0 (5.0-8.5) Ur Specific [place] 1.008 (1.002-1.035) Urine Protein 30 H (Neg-Trace) mg/dL Urine Glucose (UA) Negative (Negative) mg/dL - Imaging Impressions Abdomen/Pelvis CT 03/17/18 02:17 CONCLUSION: 1. Multiple bilateral renal calculi again seen. 2 calculi now identified at the proximal right ureter/UVJ. They measure 6 and 7 mm in diameter. Previously identified distal right ureteral calculi no longer seen. Moderate right-sided hydronephrosis. 2. Degenerative findings of lumbar spine. 3. Hiatal hernia. Caprini VTE Risk Assessment Caprini VTE Risk Assessment: Moderate/High Risk (score >= 2) Caprini Risk Assessment Model: Point Value = 1 Point Value = 2 Point Value = 3 Point Value = 5 Age 41-60 Minor surgery BMI > 25 kg/m2 Swollen legs Varicose veins or History of unexplained or recurrent spontaneous Oral contraceptives or hormone replacement Sepsis (< 1 month) Serious lung disease, including pneumonia (< 1 month) Abnormal pulmonary function Acute myocardial infarction Congestive heart failure (< 1 month) History of inflammatory bowel disease Medical patient at bed rest Age 61-74 Arthroscopic surgery Major open surgery (> 45 min) Laparoscopic surgery (> 45 min) Malignancy Confined to bed (> 72 hours) Immobilizing plaster cast Central venous access Age >= 75 History of VTE Family history of VTE Factor V Leiden Prothrombin [id number] Lupus anticoagulant Anticardiolipin antibodies Elevated serum homocysteine Heparin-induced thrombocytopenia Other congenital or acquired thrombophilia Stroke (< 1 month) Elective arthroplasty Hip, pelvis, or leg fracture Acute spinal cord injury (< 1 month) Prophylaxis Regimen: Total Risk Factor Score Risk Level Prophylaxis Regimen 0-1 Low Early ambulation 2 Moderate Order ONE of the following: *Sequential Compression Device (SCD) *Heparin 5000 units SQ BID 3-4 Higher Order ONE of the following medications: *Heparin 5000 units SQ TID *Enoxaparin/Lovenox 40 mg SQ daily (WT < 150 kg, CrCl > 30 mL/min) *Enoxaparin/Lovenox 30 mg SQ daily (WT < 150 kg, CrCl > 10-29 mL/min) *Enoxaparin/Lovenox 30 mg SQ BID (WT < 150 kg, CrCl > 30 mL/min) AND/OR *Sequential Compression Device (SCD) 5 or more Highest Order ONE of the following medications: *Heparin 5000 units SQ TID (Preferred with Epidurals) *Enoxaparin/Lovenox 40 mg SQ daily (WT < 150 kg, CrCl > 30 mL/min) *Enoxaparin/Lovenox 30 mg SQ daily (WT < 150 kg, CrCl > 10-29 mL/min) *Enoxaparin/Lovenox 30 mg SQ BID (WT < 150 kg, CrCl > 30 mL/min) AND *Sequential Compression Device (SCD) Assessment and Plan - Assessment (1) Nephrolithiasis Code(s): N20.0 - Calculus of kidney Status: Acute Plan: Nephrolithiasis Right sided hydronephrosis/possible pyelonephritis - Pt is a 72 y/o female with HTN, Hypothyroidism, nephrolithiasis and tobacco use. Pt has a history significant for kidney stones and previously underwent cystoscopy with right ureteral stent placement in 05/2017 and then had lithotripsy in 07/2017 and 08/[address] Aguilera. - Pt presented to the ED at [facility] [place] complaining of right flank pain, nausea/ vomiting. - CT Abd/pelvis (03/16/18) --> Multiple bilateral renal calculi again seen, 2 calculi now identified at the proximal right ureter/UVJ which measure 6 and 7 mm in diameter, previously identified distal right ureteral calculi no longer seen, and moderate right-sided hydronephrosis. - Urology is consulted - Urine culture taken in the ED is pending. - IVF - Rocephin - Pain control PRN - Antiemetics PRN - Pt is NPO currently - Supportive care - DVT prophylaxis with SCDs Hypothyroidism - Cont. home meds (2) Hypothyroidism Code(s): E03.9 - Hypothyroidism, unspecified Status: Acute (3) Pyelonephritis Code(s): N12 - Tubulo-interstitial nephritis, not specified as acute or chronic Status: Acute - Attending Attestation The exam, history, and the medical decision-making described in the above note were completed with the assistance of the mid-level provider. I reviewed and agree with the findings presented. I attest that I had a [id number] encounter with the patient on the same day, and personally performed and documented my assessment and findings in the medical record. Patient examined. Assessment and plan formulated with Razia Cho PA-C. I agree with the above.
[2018-03-17] MEDS ORDERED: Morphine Inj 4 MG/ML Vial IM ONE (10:22)
[2018-03-17] MEDS ORDERED: Famotidine PF Inj 20 MG/2 ML Vial ONE (11:36)
[2018-03-17] MEDS ORDERED: Succinylcholine Inj 100 MG/5 ML Syringe IV.PUSH ONE (12:00)
[2018-03-17] MEDS ORDERED: Lidocaine PF 1% Inj 5 ML Syringe INFILTRATN ONE (12:00)
--- NOTE | 2018-03-17 12:24 | P.OP ---
- Preoperative Diagnosis (1) Hydronephrosis concurrent with and due to calculi of kidney and ureter - Postoperative Diagnosis (1) Hydronephrosis concurrent with and due to calculi of kidney and ureter Date of procedure: 03/17/18 Procedure: Cystoscopy with right retrograde pyelogram and right double-J stent insertion Anesthesia: SUMMER Surgeon: Lc Ngo DO Operation and Findings: 72-year-old female with history of nephrolithiasis who presented with 2 proximal ureteral stones causing obstruction with right-sided hydronephrosis. Decision made to bring the patient to the operating room to undergo cystoscopy right double-J stent insertion. Risk and benefits were discussed preoperatively patient was willing to proceed. Patient was brought to the operating room and identified by myself as Hedy Shonna. She was placed in the dorsal lithotomy position, prepped and draped in sterile fashion, received preprocedure antibiotics and general endotracheal tube anesthesia was administered. 22 Romanian cystoscope was inserted the bladder benavidez cystoscopy did not reveal any abnormalities. The right ureteral orifice was identified a 5 Romanian ureteral catheter was inserted into the right ureteral orifice without difficulty. A retrograde pyelogram was performed demonstrating obstruction at the proximal ureter noted. A 0.35 sensor wire was then passed up into the kidney beyond the stone and obstruction left in position. A 22 cm 6 Romanian right double-J stent was placed in good position with a good curl in the kidney and the bladder. The bladder was evacuated and she was awoken and transferred him stable condition. She tolerated the procedure well and will require lithotripsy in the future to remove her ureteral stone burden.
[2018-03-17] MEDS ORDERED: fentaNYL Citrate Inj 100 MCG/2 ML Ampul ONE (12:41)
--- NOTE | 2018-03-17 13:00 | MB ---
cc: HuberGerardon Harpreet DATE: 03/17/2018 HISTORY OF PRESENT ILLNESS: This is a pleasant 72-year-old female with a history of stones who presents with obstructing 2 proximal right ureteral stones causing hydronephrosis on CAT scan upon admission to the emergency room. She was presented with right-sided flank pain and lower urinary tract symptoms. PAST MEDICAL HISTORY: Includes a history of nephrolithiasis, hypertension, diverticulosis and hyperthyroidism. PAST SURGICAL HISTORY: Noted for a cystoscopy with stent insertion and thyroidectomy. SOCIAL HISTORY: Denies smoking, drinking or using any drugs. FAMILY HISTORY: Noted for history of stones. REVIEW OF SYSTEMS: Noted right-sided flank pain with associated nausea. Denies any fever or chills. Denies chest pain or shortness of breath. Does note right-sided abdominal pain and notes nausea. Denies constipation. Does note some urgency and frequency with urination. Denies any gait disturbances or bleeding disorder, skin lesions, or psychiatric problems. The remaining review of systems were reviewed and were negative. PHYSICAL EXAMINATION: VITAL SIGNS: Temperature is 97.8, heart rate 74-6, respiratory rate 16, blood pressure 146/81, 98% on room air. GENERAL: She is a well-developed, well-nourished, 72-year-old female in no acute distress. HEENT: Normocephalic, atraumatic. Pupils equal, round, regular and reactive to light. Extraocular movements intact. NECK: Supple. HEART: Regular rate and rhythm. LUNGS: Clear. ABDOMEN: Soft. Right-sided tenderness noted. There is right CVA tenderness noted. GENITOURINARY: Normal female external genitalia. EXTREMITIES: Show no evidence of cyanosis, clubbing, or edema. NEUROLOGIC: Cranial nerves 2-12 are intact. LABORATORY VALUES: White count is 14.2, hemoglobin 11.1, hematocrit 36.0, platelet count of 436. Sodium 139, potassium 4.9, chloride 111, CO2 is 21.6, BUN of 10, creatinine 0.69, glucose of 129. Urinalysis shows 14 red cells and 30 white cells. IMAGING STUDIES: A CT scan of the abdomen and pelvis demonstrated multiple bilateral renal calculi with 2 calculi noted in the proximal right ureter measuring 6 and 7 mm in diameter with moderate right-sided hydronephrosis. ASSESSMENT AND PLAN: This is a 72-year-old female with 2 obstructing proximal ureteral stones, 6 and 7 mm in size, causing hydronephrosis with obstruction. We will plan for cystoscopy and right retrograde study and right double-J stent insertion. Risks and benefits were discussed preoperatively and she was willing to proceed. Continue n.p.o. Thank you for the consultation and allowing me participate in the care of this patient. DO ILIA Pulido/LAMONTE , 12:28 PM , 12:58 PM
[2018-03-17] MEDS: Morphine Inj 4 MG/ML Vial IV.PUSH PRN ×2 (16:44→23:47)
[2018-03-18] MEDS: Morphine Inj 4 MG/ML Vial IV.PUSH PRN ×3 (06:51→22:37)
[2018-03-18 07:29] LABS: Baso # (Auto) 0.1 th/mm3 (0.0-0.2); Baso % (Auto) 0.6 % (0.0-2.0); Eos # (Auto) 0.2 th/mm3 (0.0-0.4); Eos % (Auto) 1.2 % (0.0-4.0); Hematocrit 29.9 % (35.0-46.0); Hemoglobin 9.2 gm/dL (11.6-15.3); Lymph # (Auto) 3.1 th/mm3 (1.0-4.8); Lymph % (Auto) 22.3 % (9.0-44.0); Mean Corpuscular Hemoglobin 22.3 pg (27.0-34.0); Mean Corpuscular Volume 72.2 fL (80.0-100.0); Mean Platelet Volume 7.6 fL (7.0-11.0); Mono # (Auto) 1.1 th/mm3 (0.0-0.9); Mono % (Auto) 8.2 % (0.0-8.0); Neut # (Auto) 9.3 th/mm3 (1.8-7.7); Neut % (Auto) 67.7 % (16.0-70.0); Platelet Count 437 th/mm3 (150-450); Red Blood Count 4.14 mil/mm3 (4.00-5.30); Red Cell Distribution Width 18.9 % (11.6-17.2); White Blood Count 13.8 th/mm3 (4.0-11.0)
[2018-03-18 07:33] LABS: Mean Corpuscular HGB Conc 30.9 % (32.0-36.0)
[2018-03-18 07:45] LABS: Anion Gap 6 meq/L (5-15); Blood Urea Nitrogen 7 mg/dL (7-18); Calcium 9.1 mg/dL (8.5-10.1); Carbon Dioxide 24.7 meq/L (21.0-32.0); Chloride 112 meq/L (98-107); Glomerular Filtration Rate Greater Than 89 mL/min (>89); Glucose,Random 95 mg/dL (74-106); Sodium 143 meq/L (136-145)
--- NOTE | 2018-03-18 08:13 | P.PNIM ---
Subjective Interval history: Pt rather emotional this morning Still with pain but it is somewhat better today after receiving pain medication BP elevated this morning as well. Physical Exam Vital signs: Vital Signs 03/17/18 12:32 03/17/18 12:45 03/17/18 13:00 Temperature 97.7 F Pulse Rate 70 61 54 L Respiratory Rate 12 14 14 Blood Pressure 116/56 L 102/52 L 148/61 H Pulse Oximetry 97 100 100 03/17/18 13:15 03/17/18 19:52 03/18/18 00:19 Temperature 98.1 F 98 F 98.0 F Pulse Rate 83 70 67 Respiratory Rate 14 18 18 Blood Pressure 155/65 H 156/70 H 177/76 H Pulse Oximetry 100 98 95 03/18/18 03:33 03/18/18 07:50 Temperature 97.8 F Pulse Rate 90 Respiratory Rate 18 Blood Pressure 141/60 H 193/79 H Pulse Oximetry 96 Intake & Output 03/17/18 03/18/18 03/18/18 18:59 06:59 18:59 Intake Total 2600 / 2600 1000 / 1000 Balance 2600 / 2600 1000 / 1000 Intake: IV 1100 / 1100 1000 / 1000 Potassium Chlor 20 mEq/NACL 0. 1000 / 1000 45% Inj 1,000 ML @ 84 mls/hr IV .CONT .[id number] [facility] Rx#:[id number] NS Inj 1,000 ML @ Wide Open IV. 1000 / 1000 SIG BOLUS ONE Rx#:[id number] Rocephin Inj 1,000 MG In NS Inj 100 / 100 100 ML @ 200 mls/hr IV.SIG ONCE ONE Rx#:[id number] Oral 500 / 500 Anesthesia Amount 1000 / 1000 Other: # Voids 2 Date of Last Bowel Movement 03/16/18 Narrative: GENERAL: AAOx3, anxious and upset this morning CARDIO: Regular. RESP: Breath sounds equal bilaterally. No accessory muscle use. ABD: +BS, soft, right flank tenderness, nondistended. EXT: No cyanosis, or edema. Results - Labs CBC & Chem 7: 03/19/18 07:07 03/19/18 07:07 Laboratory Results - last 24 hr 03/18/18 03/18/18 06:44 06:44 WBC 13.8 H RBC 4.14 Hgb 9.2 L Hct 29.9 L MCV 72.2 L MCH 22.3 L MCHC 30.9 L RDW 18.9 H Plt Count 437 MPV 7.6 Neut % (Auto) 67.7 Lymph % (Auto) 22.3 [place] % (Auto) 8.2 H Eos % (Auto) 1.2 Baso % (Auto) 0.6 Neut # (Auto) 9.3 H Lymph # (Auto) 3.1 [place] # (Auto) 1.1 H Eos # (Auto) 0.2 Baso # (Auto) 0.1 WBC Differential . Differential Comment Auto diff final Sodium 143 Potassium 4.0 Chloride 112 H Carbon Dioxide 24.7 Anion Gap 6 BUN 7 Creatinine 0.62 Estimated GFR Greater than 89 Random Glucose 95 Calcium 9.1 - Imaging Abdomen/Pelvis CT 03/17/18 02:17 CONCLUSION: 1. Multiple bilateral renal calculi again seen. 2 calculi now identified at the proximal right ureter/UVJ. They measure 6 and 7 mm in diameter. Previously identified distal right ureteral calculi no longer seen. Moderate right-sided hydronephrosis. 2. Degenerative findings of lumbar spine. 3. Hiatal hernia. Assessment and Plan - Assessment (1) Nephrolithiasis Code(s): N20.0 - Calculus of kidney Status: Acute Plan: Nephrolithiasis Right sided hydronephrosis/possible pyelonephritis - Pt is a 72 y/o female with HTN, Hypothyroidism, nephrolithiasis and tobacco use. Pt has a history significant for kidney stones and previously underwent cystoscopy with right ureteral stent placement in 05/2017 and then had lithotripsy in 07/2017 and 08/[address] Aguilera. - Pt presented to the ED at [facility] [place] complaining of right flank pain, nausea/ vomiting. - CT Abd/pelvis (03/16/18) --> Multiple bilateral renal calculi again seen, 2 calculi now identified at the proximal right ureter/UVJ which measure 6 and 7 mm in diameter, previously identified distal right ureteral calculi no longer seen, and moderate right-sided hydronephrosis. - Urology is following. - Pt underwent cystoscopy with right retrograde pyelogram and right double-J stent insertion on 03/17/[address] Ngo - Urine culture is pending. - Cont. Rocephin - Pain control PRN - Antiemetics PRN - Supportive care - DVT prophylaxis with SCDs Hypothyroidism - Cont. home meds (2) Hypothyroidism Code(s): E03.9 - Hypothyroidism, unspecified Status: Acute (3) Pyelonephritis Code(s): N12 - Tubulo-interstitial nephritis, not specified as acute or chronic Status: Acute - Attending Attestation The exam, history, and the medical decision-making described in the above note were completed with the assistance of the mid-level provider. I reviewed and agree with the findings presented. I attest that I had a [id number] encounter with the patient on the same day, and personally performed and documented my assessment and findings in the medical record. Patient examined. Assessment and plan formulated with Razia Cho PA-C. I agree with the above.
[2018-03-18] MEDS: KCL 20 mEq/NACL 0.45% Inj 1,000 ML IV.CONT SCH ×2 (10:21→17:17)
--- NOTE | 2018-03-18 16:52 | P.PNURO ---
Subjective Patient symptoms today: Pt seen and examined. Sore abdominal soreness is noted. Objective Vital Signs: Vital Signs 03/17/18 19:52 03/18/18 00:19 03/18/18 03:33 Temperature 98 F 98.0 F Pulse Rate 70 67 Respiratory Rate 18 18 Blood Pressure 156/70 H 177/76 H 141/60 H Pulse Oximetry 98 95 03/18/18 07:50 03/18/18 09:08 03/18/18 12:00 Temperature 97.8 F 97.3 F L Pulse Rate 90 70 Respiratory Rate 18 17 Blood Pressure 193/79 H 154/67 H 170/72 H Pulse Oximetry 96 99 Intake & Output 03/17/18 03/18/18 03/18/18 18:59 06:59 18:59 Intake Total 2600 / 2600 1000 / 1000 100 / 100 Balance 2600 / 2600 1000 / 1000 100 / 100 Intake: IV 1100 / 1100 1000 / 1000 100 / 100 Potassium Chlor 20 mEq/NACL 0. 1000 / 1000 45% Inj 1,000 ML @ 84 mls/hr IV .CONT .[id number] [facility] Rx#:[id number] NS Inj 1,000 ML @ Wide Open IV. 1000 / 1000 SIG BOLUS ONE Rx#:[id number] Rocephin Inj 1,000 MG In NS Inj 100 / 100 100 / 100 100 ML @ 200 mls/hr IV.SIG Q24H [facility] Rx#:[id number] Oral 500 / 500 Anesthesia Amount 1000 / 1000 Other: # Voids 2 Date of Last Bowel Movement 03/16/18 Result Diagrams: 03/18/18 06:44 03/18/18 06:44 Medications and IVs: Active Medications Generic Name Dose Route Start Last Admin Trade Name Freq PRN Reason Stop Dose Admin Acetaminophen 650 mg 03/17/18 06:09 Tylenol PO Q4H PRN FEVER > 101 F Hydrocodone Bitart/Acetaminophen 1 tab 03/17/18 06:09 03/18/18 08:07 Ivor 5/325 PO 1 tab Q4H PRN Administration PAIN SCALE 1 TO 5 Clonidine HCl 0.2 mg 03/18/18 02:51 03/18/18 08:08 Catapres PO 0.2 mg Q6H PRN Administration FOR SBP > 160 Potassium Chloride/Sodium Chloride 1,000 mls @ 84 mls/hr 03/17/18 06:30 03/18 10:21 Potassium Chlor 20 Meq/Nacl 0.45% Inj IV.CONT Not Given .[id number] [facility] Ceftriaxone Sodium 1,000 mg/ 100 mls @ 200 mls/hr 03/18/18 07:00 03/18/18 07: 20 Sodium Chloride IV.SIG Infused Q24H [facility] Infusion Morphine Sulfate 4 mg 03/17/18 06:09 03/18/18 06:51 Morphine Inj IV.PUSH 4 mg Q2H PRN Administration PAIN SCALE 6 TO 10 Ondansetron HCl 4 mg 03/17/18 06:09 03/17/18 09:09 Zofran Odt PO 4 mg Q6H PRN Administration NAUSEA OR VOMITING Promethazine HCl 12.5 mg 03/17/18 09:34 03/18/18 08:08 Phenergan Inj IM 12.5 mg Q6H PRN Administration NAUSEA Sodium Chloride 2 ml 03/17/18 09:00 03/18/18 08:08 Ns Flush IV.FLUSH Not Given BID [facility] Sodium Chloride 2 ml 03/17/18 06:09 Ns Flush IV.FLUSH PRN PRN FLUSH AFTER USING IV ACCESS Objective Remarks: Abd:soft,nt,nd no rebound, mild soreness noted Voiding clear urine Assessment and Plan - Plan Stable s/p cysto with right JJ stent insertion F/U in clinic with DR. Aguilera in a few weeks.
[2018-03-19] MEDS: KCL 20 mEq/NACL 0.45% Inj 1,000 ML IV.CONT SCH (05:11)
[2018-03-19] MEDS: Morphine Inj 4 MG/ML Vial IV.PUSH PRN ×2 (05:50→15:52)
[2018-03-19 08:40] LABS: Baso % (Auto) 0.5 % (0.0-2.0); Eos # (Auto) 0.4 th/mm3 (0.0-0.4); Eos % (Auto) 3.7 % (0.0-4.0); Hematocrit 29.7 % (35.0-46.0); Hemoglobin 9.3 gm/dL (11.6-15.3); Lymph # (Auto) 3.4 th/mm3 (1.0-4.8); Mean Corpuscular HGB Conc 31.2 % (32.0-36.0); Mean Corpuscular Hemoglobin 22.3 pg (27.0-34.0); Mean Corpuscular Volume 71.5 fL (80.0-100.0); Mean Platelet Volume 7.8 fL (7.0-11.0); Mono # (Auto) 0.9 th/mm3 (0.0-0.9); Mono % (Auto) 8.4 % (0.0-8.0); Neut # (Auto) 5.8 th/mm3 (1.8-7.7); Neut % (Auto) 55.4 % (16.0-70.0); Platelet Count 440 th/mm3 (150-450); Red Blood Count 4.16 mil/mm3 (4.00-5.30); Red Cell Distribution Width 19.1 % (11.6-17.2); White Blood Count 10.5 th/mm3 (4.0-11.0)
[2018-03-19 08:58] LABS: Anion Gap 7 meq/L (5-15); Blood Urea Nitrogen 6 mg/dL (7-18); Calcium 8.7 mg/dL (8.5-10.1); Carbon Dioxide 24.6 meq/L (21.0-32.0); Chloride 108 meq/L (98-107); Glomerular Filtration Rate Greater Than 89 mL/min (>89); Glucose,Random 87 mg/dL (74-106); Potassium 3.8 meq/L (3.5-5.1); Sodium 140 meq/L (136-145)
--- NOTE | 2018-03-19 09:40 | P.PNIM ---
Subjective Interval history: Pt still with some abd discomfort but overall is feeling better today Less anxious No nausea/vomiting, tolerating oral intake Physical Exam Vital signs: Vital Signs 03/18/18 12:00 03/18/18 16:00 03/18/18 20:00 Temperature 97.3 F L 97.5 F L 97.6 F Pulse Rate 70 60 69 Respiratory Rate 17 19 17 Blood Pressure 170/72 H 147/67 H 129/68 Pulse Oximetry 99 94 L 96 03/19/18 00:26 03/19/18 04:19 Temperature 97.7 F 97.9 F Pulse Rate 68 58 L Respiratory Rate 17 16 Blood Pressure 163/77 H 151/71 H Pulse Oximetry 96 96 Intake & Output 03/18/18 03/19/18 03/19/18 18:59 06:59 18:59 Intake Total 1100 / 1100 1580 / 1580 Output Total 1200 / 1200 Balance 1100 / 1100 380 / 380 Intake: IV 1100 / 1100 1000 / 1000 Potassium Chlor 20 mEq/NACL 0. 1000 / 1000 1000 / 1000 45% Inj 1,000 ML @ 84 mls/hr IV .CONT .[id number] [facility] Rx#:[id number] Rocephin Inj 1,000 MG In NS Inj 100 / 100 100 ML @ 200 mls/hr IV.SIG Q24H [facility] Rx#:[id number] Oral 580 / 580 Output: Urine 1200 / 1200 Other: Date of Last Bowel Movement 03/18/18 Narrative: GENERAL: AAOx3, anxious and upset this morning CARDIO: Regular. RESP: Breath sounds equal bilaterally. No accessory muscle use. ABD: +BS, soft, minimal right flank tenderness, nondistended. EXT: No cyanosis, or edema. Results - Labs CBC & Chem 7: 03/19/18 07:07 03/19/18 07:07 Laboratory Results - last 24 hr 03/17/18 03/19/18 03/19/18 03:55 07:07 07:07 WBC 10.5 RBC 4.16 Hgb 9.3 L Hct 29.7 L MCV 71.5 L MCH 22.3 L MCHC 31.2 L RDW 19.1 H Plt Count 440 MPV 7.8 Neut % (Auto) 55.4 Lymph % (Auto) 32.0 [place] % (Auto) 8.4 H Eos % (Auto) 3.7 Baso % (Auto) 0.5 Neut # (Auto) 5.8 Lymph # (Auto) 3.4 [place] # (Auto) 0.9 Eos # (Auto) 0.4 Baso # (Auto) 0.0 WBC Differential . Differential Comment Auto diff final Sodium 140 Potassium 3.8 Chloride 108 H Carbon Dioxide 24.6 Anion Gap 7 BUN 6 L Creatinine 0.58 Estimated GFR Greater than 89 Random Glucose 87 Calcium 8.7 Urine Color Yellow Urine Clarity Hazy H Urine pH 7.0 Ur Specific [place] 1.008 Urine Protein 30 H Urine Glucose (UA) Negative Urine Ketones Negative Urine Occult Blood Moderate H Urine Nitrate Negative Urine Bilirubin Negative Urine Urobilinogen Less than 2 Ur Leukocyte Esterase Large H Urine RBC 14 H Urine WBC 30 H Amorphous Sediment Rare H Urine Bacteria Few H Urine Mucus Few H Micro UA Comment Culture indicated Urine Culture Comments Culture indicated Microbiology 03/17/18 03:55 Clean Catch Urine Urine Culture - Preliminary gram negative rods - Imaging Abdomen/Pelvis CT 03/17/18 02:17 CONCLUSION: 1. Multiple bilateral renal calculi again seen. 2 calculi now identified at the proximal right ureter/UVJ. They measure 6 and 7 mm in diameter. Previously identified distal right ureteral calculi no longer seen. Moderate right-sided hydronephrosis. 2. Degenerative findings of lumbar spine. 3. Hiatal hernia. Assessment and Plan - Assessment (1) Nephrolithiasis Code(s): N20.0 - Calculus of kidney Status: Acute Plan: Nephrolithiasis Right sided hydronephrosis/possible pyelonephritis - Pt is a 72 y/o female with HTN, Hypothyroidism, nephrolithiasis and tobacco use. Pt has a history significant for kidney stones and previously underwent cystoscopy with right ureteral stent placement in 05/2017 and then had lithotripsy in 07/2017 and 08/[address] Aguilera. - Pt presented to the ED at [facility] [place] complaining of right flank pain, nausea/ vomiting. - CT Abd/pelvis (03/16/18) --> Multiple bilateral renal calculi again seen, 2 calculi now identified at the proximal right ureter/UVJ which measure 6 and 7 mm in diameter, previously identified distal right ureteral calculi no longer seen, and moderate right-sided hydronephrosis. - Urology is following. - Pt underwent cystoscopy with right retrograde pyelogram and right double-J stent insertion on 03/17/[address] Ngo - Urine culture is growing gram negative rods, awaiting final culture - Cont. Rocephin but will need to be changed to oral antibiotics once final culture results - Pain control PRN - Antiemetics PRN - Supportive care - DVT prophylaxis with SCDs Hypothyroidism - Cont. home meds The exam, history, and the medical decision-making described in the above note were completed with the assistance of the mid-level provider. I reviewed and agree with the findings presented. I attest that I had a [id number] encounter with the patient on the same day, and personally performed and documented my assessment and findings in the medical record. cx result noted. dc home on po abx and f/u urology. - Attending Attestation The exam, history, and the medical decision-making described in the above note were completed with the assistance of the mid-level provider. I reviewed and agree with the findings presented. I attest that I had a [id number] encounter with the patient on the same day, and personally performed and documented my assessment and findings in the medical record. Patient examined. Assessment and plan formulated with Razia Cho PA-C. I agree with the above.
[2018-03-19 13:37] VITALS: BP 164/69; PULSE 69; RESP 18; TEMP 98.3; O2SAT 96
== END 2018-03-19 15:57 | disposition home or self-care (01) ==
LOC: NEPC 01:28 → NEDA 05:14 → NEPHCDU 07:45 → N07 03-18 11:43
PROVIDERS: ADMIT Hospitalist; ATTEND Hospitalist
DX: N13.6 Pyonephrosis; I10 Essential (primary) hypertension; E89.0 Postprocedural hypothyroidism; M19.90 Unspecified osteoarthritis, unspecified site; E78.5 Hyperlipidemia, unspecified; M51.36 Other intervertebral disc degeneration, lumbar region; M85.80 Other specified disorders of bone density and structure, unspecified site; G25.0 Essential tremor; D69.2 Other nonthrombocytopenic purpura; K21.9 Gastro-esophageal reflux disease without esophagitis; B96.1 Klebsiella pneumoniae [K. pneumoniae] as the cause of diseases classified elsewhere; F17.210 Nicotine dependence, cigarettes, uncomplicated